=== PATIENT | male | born 1965 ===

== ENCOUNTER 2021-03-31 09:31 | Emergency (ER) | payer MEDICAID, SELFPAY ==
--- NOTE | ~2021-03-31 | XR_ITS ---
EXAMINATION: XR HAND, LEFT CLINICAL INFORMATION: Swelling and redness. COMPARISON: None TECHNIQUE: PA, lateral, and oblique views of the left hand. FINDINGS: There is mild dorsal hand soft tissue swelling. There is mild loss of joint space with periarticular spurring PIP joint joint first digit. Also visualized is mild loss of joint space PIP and DIP joints. No visible acute fracture, dislocation or subluxation seen. No bony erosive changes. XR/XR hand LT 2V IMPRESSION: Mild degenerative changes and DIP joints suggesting early degenerative changes. No visible acute fracture or dislocation seen.
[2021-03-31 10:20] VITALS: BP 121/82; PULSE 77; RESP 18; TEMP 37.3; O2SAT 96; BMI 35.9
[2021-03-31 11:00] VITALS: BP 140/82; PULSE 76; RESP 16; TEMP 37; O2SAT 98
[2021-03-31] MEDS: cephALEXin 500 MG CAPSULE PO (11:19)
--- NOTE | 2021-03-31 16:40 | ED.EXTPRO ---
HPI - Extremity Problem General Chief complaint: Extremity Problem Stated complaint: SWOLLEN HAND Time Seen by Provider: 03/31/21 10:49 History of Present Illness HPI Narrative: Patient shot IV cocaine 5 days ago in left dorsum of hand since then complaining of swelling of the dorsum of the hand which is getting worse now have a good feeling in the hands able to make fist no fever no chills no history of MRSA in the past Related Data Previous Rx's Medication Instructions Recorded cephalexin 500 mg PO QID 10 Days #40 cap 03/31/21 doxycycline hyclate 100 mg PO BID #20 cap 03/31/21 Allergies Allergy/AdvReac Type Severity Reaction Status Date / Time No Known Allergies Allergy Unverified 07/28/20 17:01 [No Known Allergies*] Review of Systems Review of Systems: Constitutional : No Weight loss, No Fever, No Chills ENT/Mouth : No sore throat, No Rhinorrhea Eyes: No Eye Pain, No Swelling Cardiovascular : No Chest Pain, no palpitations Respiratory : No Cough, No Sputum, no shortness of breath Gastrointestinal : no Nausea, No Vomiting, No Diarrhea, No abdominal Pain, no black stools Genitourinary : No Dysuria, No Urinary Frequency Musculoskeletal : No joint pain, No Myalgias, No Joint Swelling Skin : No Skin Lesions, No rash Neuro : No Weakness, No Numbness, No Dizziness, No Headache Psych : No Anxiety/Panic, No Depression Heme/Lymph: No Bruising, No Lymphadenopathy Endocrine : No Polyuria, No Polydipsia All other systems reviewed and are negative PMFSH Past Medical History Medical History Bipolar 1 disorder Depression HTN (hypertension) Sleep apnea Social History Social History Smoking Status: Current some day smoker Use of substances other than those prescribed or required for medical reasons: Yes Substance Use Type: Heroin Substance Use Frequency: Occasionally Last Used Substance: Days (ago) Advance Directives: Yes Advance Directives Information Provided: Yes Advance Directives on File: No Physical Exam Vital Signs: Vital Signs: Last Vital Signs Temp 98.6 F 03/31/21 11:00 Pulse 76 03/31/21 11:00 Resp 16 03/31/21 11:00 BP 140/82 H 03/31/21 11:00 Pulse Ox 98 03/31/21 11:00 Body Mass Index 35.9 Const: General: no acute distress and well developed HENMT: Head: Yes normocephalic and Yes atraumatic Resp: Effort & Inspection: normal respiratory effort Auscultation: clear to auscultation bilaterally Cardio: Palpation: normal PMI Rate: regular rate Rhythm: regular rhythm Heart sounds: S1 normal heart sound present and S2 normal heart sound present Extrem: Hand/finger images: 1. Swelling of the dorsum of the hand no crepitus patient can make a good fist Discharge Plan Discharge Clinical Impression: Cellulitis Qualifiers: Site of cellulitis: extremity Site of cellulitis of extremity: upper extremity Laterality: right Qualified Code(s): L03.113 - Cellulitis of right upper limb Patient Disposition: Home, Self-Care Instructions: Cellulitis (ED) Additional Instructions: Stop using IV drugs. Take antibiotic as prescribed Keep the left hand elevated. Report to the ER if worsening of the swelling/fever Prescriptions: New doxycycline hyclate 100 mg capsule 100 mg PO BID Qty: 20 RF: 0 cephalexin 500 mg capsule 500 mg PO QID 10 Days Qty: 40 RF: 0 Interventions: ED Discharge Assessment Last Done: 03/31/21 11:25 Discharge Date/Time: 03/31/21 11:25
== END 2021-03-31 11:25 | disposition home or self-care (01) ==
PROVIDERS: Emergency Provider Internal Medicine; PCP Pediatrics
DX: L03.113 Cellulitis of right upper limb (principal); M79.641 Pain in right hand; M79.89 Other specified soft tissue disorders; F11.90 Opioid use, unspecified, uncomplicated; F17.200 Nicotine dependence, unspecified, uncomplicated; Z71.6 Tobacco abuse counseling
CPT/HCPCS: 73120; 99284

== ENCOUNTER 2022-04-19 12:23 | Outpatient (REF) | payer MEDICAID, SELFPAY ==
--- NOTE | ~2022-04-19 | XR_ITS ---
EXAMINATION: XR KNEE, LEFT XR KNEE, RIGHT CLINICAL INFORMATION: Knee pain COMPARISON: None TECHNIQUE: 4 views of each knee, including AP upright view. FINDINGS: Left knee: No fracture or subluxation. Compartmental joint spaces are maintained. No joint effusion. Enthesophyte formation of the patella. The soft tissues are unremarkable. Right knee: No fracture or subluxation. Compartmental joint spaces are maintained. No joint effusion. The soft tissues are unremarkable. XR/XR knee LT 4V IMPRESSION: No suspicious finding of either knee. No significant arthritic changes.
--- NOTE | ~2022-04-19 | XR_ITS ---
EXAMINATION: XR KNEE, LEFT XR KNEE, RIGHT CLINICAL INFORMATION: Knee pain COMPARISON: None TECHNIQUE: 4 views of each knee, including AP upright view. FINDINGS: Left knee: No fracture or subluxation. Compartmental joint spaces are maintained. No joint effusion. Enthesophyte formation of the patella. The soft tissues are unremarkable. Right knee: No fracture or subluxation. Compartmental joint spaces are maintained. No joint effusion. The soft tissues are unremarkable. XR/XR knee RT 4V IMPRESSION: No suspicious finding of either knee. No significant arthritic changes.
== END 2022-04-19 12:24 | disposition home or self-care (01) ==
LOC: HO.XRAY 12:23
PROVIDERS: Absent Provider Pediatrics; PCP Pediatrics; Visit Provider Internal Medicine
DX: M25.561 Pain in right knee (principal); M25.562 Pain in left knee
CPT/HCPCS: 73564

== ENCOUNTER 2022-08-28 13:00 | Outpatient (RCR) | payer MEDICAID, SELFPAY | END 2022-10-08 11:36 | disposition home or self-care (01) | LOC: HO.PT 13:00 | PROVIDERS: PCP Pediatrics; Visit Provider Internal Medicine | DX: G51.0 Bell's palsy (principal) | CPT/HCPCS: 97014; 97161 ==

== ENCOUNTER 2023-08-13 11:34 | Outpatient (REF) | payer MEDICAID, SELFPAY ==
[2023-08-13 14:53] LABS: C Reactive Protein 0.57 mg/dL (< or = 0.50); Uric Acid 4.4 mg/dL (3.4-7.0)
[2023-08-13 15:18] LABS: Erythrocyte Sedimentation Rate 16 MM/HR (0-15); Prostate Specific Antigen 0.27 ng/mL (<0.05-4.0)
[2023-08-13 17:00] LABS: CT PCR NOT DETECTED (Not Detect.); NG PCR NOT DETECTED (Not Detect.)
[2023-08-14 09:37] LABS: ~HepC Num1 14.29 S/CO (0.00-0.79); ~Hepatitis C Antibody Reactive (Nonreactive)
[2023-08-17 15:44] LABS: HIV RNA PCR Qn Copies Not Detected Copies/mL; HIV RNA PCR Qn Log Copies Not Detected Log cps/mL
[2023-08-18 15:08] LABS: HCV Log PCR <1.18 NOT DETECTED Log IU/mL (NOT DETECTED); HepC Viral Load <15 NOT DETECTED IU/mL (NOT DETECTED)
== END 2023-08-13 11:35 | disposition home or self-care (01) ==
LOC: HO.CHCLDS 11:34
PROVIDERS: Visit Provider Pediatrics
DX: G89.29 Other chronic pain (principal); M25.562 Pain in left knee; R35.1 Nocturia; Z20.2 Contact with and (suspected) exposure to infections with a predominantly sexual mode of transmission
CPT/HCPCS: 0353U; 84153; 84550; 85652; 86140; 86803; 87522; 87536; 87900

== ENCOUNTER 2023-09-26 14:30 | Outpatient (REF) | payer MEDICAID, SELFPAY ==
[2023-09-26 17:22] LABS: MANUAL DIFF FLAG NO
[2023-09-26 17:27] LABS: Appearance Urine Clear; Color Urine Yellow; Glucose Urine UA Negative (Negative); Leukocyte Esterase Urine Negative (Negative); Nitrite Urine Negative (Negative); Specific Gravity - Urine 1.025 (1.005-1.025); Urine Blood Negative (Negative); Urine Ketones Negative (Negative); Urine Protein Negative (Neg-Trace)
[2023-09-26 17:27] LABS: Basophils Absolute Auto 0.1 X10*3/uL (0.0-0.2); Basophils Percent Auto 0.7 % (0-2); Eosinophils Absolute Auto 0.2 X10*3/uL (0.0-0.4); Eosinophils Percent Auto 3.2 % (0-4); Hematocrit 41.1 % (42.0-52.0); Hemoglobin 13.9 g/dl (14.0-18.0); Imm Gran Abs Auto 0.02 X10*3/uL (0.00-0.03); Imm Gran Pct Auto 0.3 % (0.0-0.4); Lymphocytes Absolute Auto 2.3 X10*3/uL (1.2-4.9); Lymphocytes Percent Auto 33.2 % (20-40); Mean Corpuscular HGB Conc 33.8 g/dl (31.0-36.0); Mean Corpuscular Hemoglobin 29.8 pg (27.0-33.0); Mean Platelet Volume 10.1 fL (9.4-12.4); Monocytes Absolute Auto 0.6 X10*3/uL (0.1-1.2); Monocytes Percent Auto 8.8 % (2-11); Neutrophils Absolute Auto 3.7 x10*3/uL (2.0-8.3); Neutrophils Percent Auto 53.8 % (45-73); Platelet Count 195 X10*3/uL (160-400); Red Blood Count 4.67 X10*6/uL (4.60-5.80); Red Cell Distribution Width 12.7 % (11.0-16.0); White Blood Count 6.8 X10*3/uL (4.8-10.8)
[2023-09-26 17:30] LABS: Bacteria Urine None Seen (None Seen); Hyaline Casts Urine 0-2 /LPF (0-2); Squamous Epithelial Cell Urine 0-2 /HPF (0-2); WBC Urine 0-5 /HPF (0-5)
[2023-09-26 17:33] LABS: Anion Gap 10 (12-20); Blood Urea Nitrogen 19 mg/dL (9-16); Calcium 9.2 mg/dL (8.4-10.2); Carbon Dioxide 28 mmol/L (22-29); Chloride 104 mmol/L (96-108); Estimated Glomerular Filt Rate > 60; Glucose Random 107 mg/dL (60-115); Potassium 4.2 mmol/L (3.3-5.1); Sodium 138 mmol/L (135-145)
[2023-09-26 17:40] LABS: Estimated Average Glucose 114 mg/dL; Hemoglobin A1c % 5.6 % (<6.0)
[2023-09-26 18:03] LABS: Vitamin B12 443 pg/mL (200-900)
== END 2023-09-26 14:31 | disposition home or self-care (01) ==
LOC: HO.CHCLDS 14:30
PROVIDERS: Visit Provider Pediatrics
DX: E78.2 Mixed hyperlipidemia (principal); R73.03 Prediabetes; R25.2 Cramp and spasm
CPT/HCPCS: 36415; 80048; 81001; 82607; 83036; 85025

== ENCOUNTER 2023-10-09 10:13 | Outpatient (REF) | payer MEDICAID, SELFPAY ==
--- NOTE | ~2023-10-09 | XR_ITS ---
EXAMINATION: XR HAND, RIGHT CLINICAL INFORMATION: Cramping and stiffness. COMPARISON: None available. TECHNIQUE: PA, lateral, and oblique views of the right hand. FINDINGS: Bony alignment and mineralization are normal. There is a neutral ulnar variance. An old well-corticated ununited radial styloid fracture versus accessory ossification center is seen. There is no acute fracture or dislocation. There is mild osteoarthritic change of the interphalangeal joint of the thumb. There is minimal osteoarthritic change of the first metacarpophalangeal joint. No fracture or dislocation is seen. There is no abnormal bone erosion. The proximal and distal carpal rows are intact. No focal soft tissue swelling, gas or foreign body is noted. XR/XR hand RT min 3V IMPRESSION: There is mild osteoarthritic change of the interphalangeal joint of thumb and of the first metacarpophalangeal joint. No fracture or dislocation is seen. There is no abnormal bone erosion. EXAMINATION: XR HAND, LEFT CLINICAL INFORMATION: Cramping and stiffness. COMPARISON: Radiographs dated 03/31/2021. TECHNIQUE: PA, lateral, and oblique views of the left hand. FINDINGS: Bony alignment and mineralization are normal. There is a neutral ulnar variance. There is mild osteoarthritic change of the interphalangeal joint of the thumb and of the first carpometacarpal joint. No fracture or dislocation is seen. No abnormal bone erosion. The proximal and distal carpal rows are intact. No focal soft tissue swelling, gas or foreign body is seen. IMPRESSION: There is mild osteoarthritic change of the interphalangeal joint of the thumb and of the left first carpometacarpal joint. No fracture dislocation is seen. There is no abnormal bone erosion.
--- NOTE | ~2023-10-09 | XR_ITS ---
EXAMINATION: XR HAND, RIGHT CLINICAL INFORMATION: Cramping and stiffness. COMPARISON: None available. TECHNIQUE: PA, lateral, and oblique views of the right hand. FINDINGS: Bony alignment and mineralization are normal. There is a neutral ulnar variance. An old well-corticated ununited radial styloid fracture versus accessory ossification center is seen. There is no acute fracture or dislocation. There is mild osteoarthritic change of the interphalangeal joint of the thumb. There is minimal osteoarthritic change of the first metacarpophalangeal joint. No fracture or dislocation is seen. There is no abnormal bone erosion. The proximal and distal carpal rows are intact. No focal soft tissue swelling, gas or foreign body is noted. XR/XR hand LT min 3V IMPRESSION: There is mild osteoarthritic change of the interphalangeal joint of thumb and of the first metacarpophalangeal joint. No fracture or dislocation is seen. There is no abnormal bone erosion. EXAMINATION: XR HAND, LEFT CLINICAL INFORMATION: Cramping and stiffness. COMPARISON: Radiographs dated 03/31/2021. TECHNIQUE: PA, lateral, and oblique views of the left hand. FINDINGS: Bony alignment and mineralization are normal. There is a neutral ulnar variance. There is mild osteoarthritic change of the interphalangeal joint of the thumb and of the first carpometacarpal joint. No fracture or dislocation is seen. No abnormal bone erosion. The proximal and distal carpal rows are intact. No focal soft tissue swelling, gas or foreign body is seen. IMPRESSION: There is mild osteoarthritic change of the interphalangeal joint of the thumb and of the left first carpometacarpal joint. No fracture dislocation is seen. There is no abnormal bone erosion.
== END 2023-10-09 10:14 | disposition home or self-care (01) ==
LOC: HO.HHCX 10:13
PROVIDERS: Visit Provider Pediatrics
DX: M79.642 Pain in left hand (principal); M79.641 Pain in right hand; R25.2 Cramp and spasm; E78.2 Mixed hyperlipidemia; R73.03 Prediabetes
CPT/HCPCS: 73130

== ENCOUNTER 2024-01-24 09:52 | Outpatient (REF) | payer MEDICAID, SELFPAY ==
[2024-01-24 14:56] LABS: Potassium 3.3 mmol/L (3.3-5.1)
== END 2024-01-24 09:53 | disposition home or self-care (01) ==
LOC: HO.CHCLDS 09:52
PROVIDERS: Visit Provider Internal Medicine
DX: E87.6 Hypokalemia (principal)
CPT/HCPCS: 36415; 84132

== ENCOUNTER 2024-04-03 10:35 | Outpatient (REF) | payer MEDICAID, SELFPAY ==
[2024-04-03 14:50] LABS: Alanine Aminotransferase 17 U/L (0-40); Albumin Level 4.1 g/dL (3.5-5.0); Alkaline Phosphatase 100 U/L (39-117); Anion Gap 12 (12-20); Aspartate Amino Transferase 24 U/L (5-37); Bilirubin Total 0.3 mg/dL (0.0-1.0); Blood Urea Nitrogen 12 mg/dL (9-16); Calcium 9.5 mg/dL (8.4-10.2); Carbon Dioxide 27 mmol/L (22-29); Chloride 106 mmol/L (96-108); Cholesterol 152 mg/dL (<200); Estimated Glomerular Filt Rate > 60; Glucose Random 93 mg/dL (60-115); HDL Cholesterol 38 mg/dL (>40); LDL Cholesterol Calculated 93 mg/dL (<100); Potassium 4.6 mmol/L (3.3-5.1); Sodium 140 mmol/L (135-145); Total Protein 7.6 g/dL (6.5-8.0); Triglycerides 109 mg/dL (<150)
== END 2024-04-03 10:36 | disposition home or self-care (01) ==
LOC: HO.CHCLDS 10:35
PROVIDERS: Visit Provider Pediatrics
DX: I10 Essential (primary) hypertension (principal); E78.2 Mixed hyperlipidemia
CPT/HCPCS: 36415; 80053; 80061

== ENCOUNTER 2024-05-29 10:14 | Outpatient (AMB) | payer MEDICAID, SELFPAY ==
--- NOTE | 2024-05-29 07:50 | A.OFFVIS_ITS ---
Intake Visit Reasons: LDCT SD Allergies No Known Allergies [No Known Allergies*] Allergy (Unverified 07/28/20 17:01) HPI HPI LDCT SD: Details: Initial visit for this 58yo smoker with a 40PYH. Patient has been smoking since age 6 for 52 years at 1ppd. He is working to quit. PCP gave him patches. No cigarette since 05/23/24. . Denies marijuana use. Denies second hand smoke exposure. Denies exposure to chemicals or substances like asbestos. . Denies known family history of lung cancer. Denies personal history of cancers. Denies chest CT in last year. . Denies recent travel outside the [place]. Denies recent respiratory illness or recent hospitalization for respiratory issues. Denies testing positive for COVID. Admits receiving COVID Vaccine. x4. . Denies fever, chills, new/worsening cough, hemoptysis, hoarseness or dysphagia. Denies significant chest pain, significant dyspnea or unintentional weight loss. Patient Lung Cancer Screening Questionnaire reviewed with patient by provider. . Shared Decision Making Completed. Patient meets criteria. Discussed in detail with patient, the risk vs benefit of LDCT screening. Patient consents to proceed with scan. Discussed smoking cessation. PFSH Medical History (Updated 05/29/24 @ 10:29 by Yoana Mcdermott PA-C) HTN (hypertension) Sleep apnea Nicotine dependence, cigarettes, uncomplicated Bipolar 1 disorder Depression Surgical History (Updated 05/26/24 @ 12:14 by Yoana Mcdermott PA-C) History of colonoscopy History of umbilical hernia repair Family History (Updated 05/29/24 @ 10:28 by Yoana Mcdermott PA-C) Son Lymphoma Social History (Updated 05/29/24 @ 10:27 by Yoana Mcdermott PA-C) Years Smoked: (onset 6yo, 1ppd x 52yrs, 40pyh - quit 05/23/24) Substance Use Type: Heroin Assessment & Plan Assessment & Plan (1) Nicotine dependence, cigarettes, uncomplicated: Comment: (current smoker - onset 6yo, 1ppd x 52yrs, 40+PYH - trying to quit 05/23/24) Code(s): F17.210 - Nicotine dependence, cigarettes, uncomplicated Category: Medical Plan: - SDM visit completed today in office. - Patient meets criteria for LDCT for lung cancer screening purposes and is asymptomatic. - Smoking cessation counseling offered. Patients can always call [phone]. - Will arrange for a LDCT scan of the chest for screening purposes at [facility]. - Risks, benefits, and alternatives were discussed in detail and the patient agrees to proceed. - Risks discussed include but are not limited to: radiation exposure, anxiety during testing and while awaiting results, false negatives, false positives and possibility of additional intervention such as further imaging or surgical procedures for benign disease. - Benefits are obviously detection of lung cancer at an early stage which can lead to improved outcomes. - Discussed the importance of screening program compliance with adherence to yearly LDCT scan as scheduled - or sooner interval scans for personalized screening regimen. - Discussed follow up plan. Our office will send a letter discussing results and if needed set up phone call and office visit based on CT findings. - Patient educated on results categorization and the management decisions for suspicious findings potentially found on the screening LDCT scan. Any patient with a Lung RADS score of 3 or 4 will be reviewed by a multidisciplinary team at [facility] to form a plan of action in regards to scan findings. - If further work up is warranted for a suspicious lung finding this will be followed by the Lung Cancer Screening program in conjunction with the Thoracic Surgery Department at [facility]. - A copy of the office note and LDCT will be sent to the patient's PCP - as well as documentation on any associated further plans of care. - Incidental findings on LDCT are the PCP's responsibility. These findings are indicated with an S finding on the LDCT Assessment. A note discussing the findings will be sent to the PCP who is then responsible for further management. - All questions answered.? Coding Level of Care Code Lung Cancer Screening [id number] Diagnoses Nicotine dependence, cigarettes, uncomplicated F17.210
== END 2024-05-29 10:40 | disposition home or self-care (01) ==
PROVIDERS: PCP Pediatrics; Referring Provider Pediatrics; Visit Provider Physician Assistant Medical
DX: F17.210 Nicotine dependence, cigarettes, uncomplicated (principal)
CPT/HCPCS: G0296

== ENCOUNTER 2024-05-29 10:28 | Outpatient (REF) | payer MEDICAID, SELFPAY ==
--- NOTE | ~2024-05-29 | CT_ITS ---
EXAMINATION: CT LOW-DOSE SCREENING CHEST WITHOUT CONTRAST CLINICAL INFORMATION: Negative dependence, cigarettes, uncomplicated. Current smoker, 52 pack year history, 280 pounds. COMPARISON: No prior. TECHNIQUE: Multidetector volumetric CT imaging of the chest is performed on a Siemens SOMATOM Definition scanner without contrast using low dose technique. Additional 2D coronal and sagittal reformatted images and axial 3D maximum intensity projection (MIP) images are generated on the CT workstation. This CT examination was performed using dose optimization techniques as appropriate, variously including the following: *Automated exposure control *Adjustment of mA and/or kV according to patient size (this includes techniques or standardized protocols for targeted exams where dose is matched to indication/reason for exam; i.e. extremities or head) *Use of iterative reconstruction technique TOTAL EXAM DLP: 80 mGy-cm. Please note, due to [facility] [employer] contractual, systems, and staffing issues, an [facility] radiologist was not available for review and dictation of this case until 07/10/2024. FINDINGS: PULMONARY NODULES: -Mild respiratory motion present limiting detection of subtle findings. -There are a few tiny 2-3 mm scattered calcified granulomata in both lungs, benign. -4 mm nodule in the lateral inferior right middle lobe, (series 5, image 207). LUNGS: -Lungs are clear bilaterally. -No pleural effusion or pleural thickening. -Minimal small airway thickening is present, suggesting mild chronic bronchitis. -Central airways are patent as is the trachea. Small amount of secretions present in the proximal left mainstem bronchus. MEDIASTINUM: -Aorta is mildly uncoiled and mildly calcified but normal in caliber. -Main pulmonary artery is prominent, however measures superior limits of normal at 3.6 cm. -No suspicious lymphadenopathy. -Heart size is normal. No pericardial effusion. -Esophagus is normal in appearance. CORONARY ARTERY CALCIFICATION: There are moderate three-vessel coronary calcifications. THYROID GLAND: Multinodular goiter present which extends substernally, with large calcifications in both lobes. Discrete nodule size cannot be determined due to motion. CHEST WALL/AXILLA: Severe right and mild left gynecomastia. No masses or adenopathy. UPPER ABDOMEN: -No discrete abnormality within confines of low-dose technique. OSSEOUS STRUCTURES: No suspicious lytic or blastic bone lesions. Mild spinal degenerative changes. CT/CT lung screening IMPRESSION: 1. Mild respiratory motion limitations. A few scattered pulmonary nodules measuring up to 4 mm in the right middle lobe laterally. Less than 1% chance of malignancy. 2. Lungs otherwise clear without active disease. 3. Mild thickening of the small airways may suggest mild chronic bronchitis. 4. Severe right and mild left minimal gynecomastia. 5. Additional ancillary findings as discussed in the body of report. ASSESSMENT: 1. Lung-RADS Category 2: Benign appearance or behavior of nodules. Mild respiratory motion limitation. 2. Lung-RADS Category S: None. RECOMMENDATION: Continued routine annual low-dose CT lung screening in 1 year is recommended. An order for CT CHEST LOW DOSE CANCER SCREENING ([id number]) can be placed. Electronically signed by: Jose Alejandro Peterson MD 07/10/2024 09:58 AM EDT
== END 2024-05-29 10:29 | disposition home or self-care (01) ==
LOC: HO.CT 10:28
PROVIDERS: Visit Provider Physician Assistant Medical
DX: Z12.2 Encounter for screening for malignant neoplasm of respiratory organs (principal); F17.210 Nicotine dependence, cigarettes, uncomplicated
CPT/HCPCS: 71271; G0296

== ENCOUNTER → 2024-05-29 10:30 | Outpatient (BNV) | payer MEDICAID, SELFPAY | PROVIDERS: Visit Provider Radiology Diagnostic Radiology | DX: Z12.2 Encounter for screening for malignant neoplasm of respiratory organs (principal); F17.210 Nicotine dependence, cigarettes, uncomplicated | CPT/HCPCS: 71271 ==

== ENCOUNTER 2024-06-05 12:39 | Outpatient (REF) | payer MEDICAID, SELFPAY ==
[2024-06-05 16:03] LABS: HIV AB/AG Nonreactive (Nonreactive); HIV Num 1 0.05 S/CO (0.00-0.99); Syphilis Screen Nonreactive (Nonreactive)
[2024-06-05 19:43] LABS: CT PCR NOT DETECTED (Not Detect.); NG PCR NOT DETECTED (Not Detect.)
== END 2024-06-05 12:40 | disposition home or self-care (01) ==
LOC: HO.CHCLDS 12:39
PROVIDERS: Visit Provider Pediatrics
DX: Z11.3 Encounter for screening for infections with a predominantly sexual mode of transmission (principal)
CPT/HCPCS: 36415; 86780; 87389; 87491; 87591

== ENCOUNTER 2024-09-30 11:25 | Outpatient (REF) | payer MEDICAID, SELFPAY ==
[2024-09-30 14:26] LABS: Anion Gap 13 (12-20); Blood Urea Nitrogen 16 mg/dL (9-16); Calcium 9.7 mg/dL (8.4-10.2); Carbon Dioxide 26 mmol/L (22-29); Chloride 106 mmol/L (96-108); Estimated Glomerular Filt Rate > 60; Glucose Random 101 mg/dL (60-115); Potassium 4.5 mmol/L (3.3-5.1); Sodium 140 mmol/L (135-145)
[2024-09-30 14:49] LABS: PSA,Total (Free>4and<10) 0.28 ng/mL (0.00-4.00)
== END 2024-09-30 11:26 | disposition home or self-care (01) ==
LOC: HO.CHCLDS 11:25
PROVIDERS: Visit Provider Internal Medicine
DX: R39.11 Hesitancy of micturition (principal)
CPT/HCPCS: 36415; 80048; 84153; 87086

== ENCOUNTER 2025-06-23 10:44 | Outpatient (REF) | payer MEDICAID, SELFPAY ==
--- OUTSIDE RECORDS SUMMARY | 2025-06-23 11:36 | XMS_ITS | Encounter Summary ---
Author Organization [facility] Address [address] [place] [address] Care Team Providers Care Ribbon Lap Machine Tender Name Role Phone Tanja Patricia MD Primary Care Provider [phone] Barron Jernigan Unavailable Unavailable Encounter Details Date Type Department Care Team (Late st Contact Info) Description 03/09/2024 Orders Only [facility] [address] [place], [place] [id number] ProviderGenesis MD Social History Tobacco Use Types Packs/Day Years Used Date Smoking Tobacco: Former Cigarettes Passive Smoke Exposure: Past Smokeless Tobacco: Never Depression Answer Date Recorded Patient Health Questionnaire-9 Score 5 12/05/2023 Patient Health Questionnaire-9 Score 5 12/05/2023 Last PHQ-9: Questionnaire Data Not on file 0 12/05/2023 Housing Stability Answer Date Recorded What is your housing situation today? I have jayna grossman 08/26/[address] you li ve. Do you have problems with any of the following? None of the above 08/26/2023 Food Insecurity Answer Date Recorded Within the past 12 months, y ou worried that your food would run out before you got money to buy more: Never True 08/26/2023 Within the past 12 months,th e food you bought just didn't last and you didn't have enough money to get more: Never True Transportation Answer Date Recorded In the past 12 months, has l ack of transportation kept you from medical appts, meetings, work or from getting things needed for daily living? No 08/26/2023 Utilities Answer Date Recorded In the past 12 months, has t he electric, gas, oil or water company threatened to shut off services in your home? No 08/26/2023 Depression Answer Date Recorded Patient Health Questionnaire-2 Score 2 12/05/2023 Sex and Gender Information Value Date Recorded Sex Assigned at Male 09/10/2022 10:18 AM EDT Legal Sex Male 10:18 AM EDT Gender Identity Male 09/10/2022 10:18 AM EDT Sexual Orientation Straight 09/10/2022 10 :18 AM EDT documented as of this encounter Plan of Treatment Not on file documented as of this encounter Procedures Procedure Name Priority Date/Time Associated Diagnosis Comments XR CERVICAL SPINE 4V Routine 03/09/2024 2:43 PM EDT documented in this encounter Results * XR CERVICAL SPINE 4V (03/09/2024 2:43 PM EDT) Anatomical Region Laterality Modality Abdomen Radiographic Annabel ging us Historical Provider MD WHITE XR PROCEDURES Final R esult documented in this encounter Visit Diagnoses Not on filedocumented in this encounter Additional Health Concerns Assessment Noted Time PHQ-9 Depression Total Score: 5 12/05/19 24 10:18 AM EST documented as of this encounter Care Teams Ribbon Lap Machine Tender Relationship Specialty Start Date End Date Tanja Patricia MD [address] [place] [address] PCP - General Family Medicine 11/11/18 Barron Jernigan FNP [address] [place] [address] Nurse Practitioner Family Medicine 10/07/23 documented as of this encounter
--- OUTSIDE RECORDS SUMMARY | 2025-06-23 11:36 | XMS_ITS | Clinical Summary ---
Author Organization [facility] Address [address] [place] [phone] Phone Care Team Providers Care Police Booking Officer Name Role Phone Physician, No Pcp Primary Care Provider Unavaila ble Allergies No known active allergies Medications oxyCODONE (OXY-IR) 5 mg immediate release capsule Take 1 capsule (5 mg total) by mouth every 6 (six) hours if needed for severe pain. Max Daily Amount: 20 mg 15 capsule 10/02/2024 Active Active Problems No known active problems Medical History Medical History Date Comments Hypertension Social History Tobacco Use Types Packs/Day Years Used Date Smoking Tobacco: Every Day Cigarettes Smokeless Tobacco: Never Tobacco Cessation:Ready to Q uit: Not Asked; Counseling Given: Not Answered Sex and Gender Information Value Date Recorded Sex Assigned at Male 10/02/2024 7:48 AM EST Legal Sex Male 2:34 PM EST Gender Identity Male 10/02/2024 7:48 AM EST Sexual Orientation Straight 10/02/2024 7: 48 AM EST Obstetrics History Last Filed Vital Signs Vital Sign Reading Time Taken Comments Blood Pressure 139/91 02/14/2025 10:08 AM EDT Pulse 88 02/14/2025 10:08 AM EDT Temperature 37.4 C (99.3 F) 02/14/2025 10:08 AM EDT Respiratory Rate 20 02/14/2025 10:08 AM EDT Oxygen Saturation 95% 02/14/2025 10:08 AM EDT Inhaled Oxygen Concentration - - Weight 145 kg (320 lb) 02/14/2025 10:08 AM EDT Height 188 cm (6' 2 ) 02/14/2025 10:08 AM EDT Body Mass Index 41.09 02/14/2025 10:08 AM EDT Plan of Treatment Health Maintenance Due Date Last Done Comments Pneumococcal Vaccine: 50+ Years (2 of 2 - PCV) 03/11/2009 03/11/2008 Colorectal Cancer Screening: Colonoscopy 10/10/2022 Hepatitis C Screening 10/10/2022 Social Influencers of Health Screening 10/10/2022 DTaP,Tdap,and Td Vaccines (2 - Td or Tdap) 05/20/2024 05/20/2014 COVID-19 Vaccine (5 - season) 2024 09/04/2023, 12/04/2021, 01/31/2021, Additional history exists Depression Screening 11/11/2024 RSV Immunization Adult Patients (1 - Risk 60-74 years 1-dose series) 2024 Zoster Vaccines (2 of 2) 02/10/2025 12/16/2024 Influenza Vaccine (#1) 2025 , 08/13/2023, 09/14/2021, Additional history exists Hypertension/CHF/CAD Annual BMP Blood Test 02/14/2026 02/14/2025, 10/02/2024, 10/02/2024, Additional history exists Cholesterol Screening (Lipid Panel) 04/03/2029 04/03/2024 Hepatitis A Vaccines Completed 08/28/2011, 02/07/20 11 HIV Screening Completed 06/05/2024 HIB Vaccines Aged Out No longer eligi ble based on patient's age to complete this topic HPV Vaccines Aged Out No longer eligi ble based on patient's age to complete this topic Hepatitis B Vaccines Aged Out No long er eligible based on patient's age to complete this topic IPV Vaccines Aged Out No longer eligi ble based on patient's age to complete this topic MMR Vaccines Aged Out No longer eligi ble based on patient's age to complete this topic Meningococcal ACWY Vaccine Aged Out N o longer eligible based on patient's age to complete this topic Meningococcal B Vaccine Aged Out No l onger eligible based on patient's age to complete this topic RSV Immunization Patients Under 20 months Aged Out No longer eligible based on patient's age to complete this topic Varicella Vaccines Aged Out No longer eligible based on patient's age to complete this topic Procedures Procedure Name Priority Date/Time Associated Diagnosis Comments COMPREHENSIVE METABOLIC PANEL STAT 02/14/2025 10:33 AM EDT from Last 3 Months or Most Recently Relevant to Health Maintenance Results * (ABNORMAL) Comprehensive metabolic panel (02/14/2025 10:33 AM EDT) Sodium 137 133 - 145 mmol/L LAB CHEMISTRY METHOD 02/14/2025 11:08 AM [facility] Potassium 3.3(L) 3.5 - 5.5 mmol/L LAB CHEMISTRY METHOD 02/14/2025 11:08 AM [facility] Chloride 101 96 - 110 mmol/L LAB CHEMISTRY METHOD 02/14/2025 11:08 AM [facility] CO2 29 21 - 32 mmol/L LAB CHEMISTRY METHOD 02/14/2025 11:08 AM [facility] Anion Gap 7 3 - 11 LAB CHEMISTRY METHOD 02/14/2025 11:08 AM [facility] Glucose 120(H) 70 - 100 mg/dL LAB CHEMISTRY METHOD 02/14/2025 11:08 AM [facility] BUN 12 5 - 25 mg/dL LAB CHEMISTRY METHOD 02/14/2025 11:08 AM [facility] Creatinine 0.80 0.70 - 1.30 mg/dL LAB CHEMISTRY METHOD 02/14/2025 11:08 AM [facility] eGFR 101 >=60 mL/min/1. 73m2 LAB CHEMISTRY METHOD 02/14/2025 11:08 AM [facility] Comment:Calculation based on the Chronic Kidney Disease Epidemiology Collaboration (CKD-EPI) equation refit without adjustment for race. BUN/Creatinine Ratio 15.0 LAB CHEMISTRY METHOD 02/14/2025 11:08 AM [facility] Calcium 9.4 8.5 - 10.5 mg/dL LAB CHEMISTRY METHOD 02/14/2025 11:08 AM [facility] AST (SGOT) 23 10 - 42 unit/L LAB CHEMISTRY METHOD 02/14/2025 11:08 AM T [facility] ALT (SGPT) 24 10 - 60 unit/L LAB CHEMISTRY METHOD 02/14/2025 11:08 AM [facility] Alkaline Phosphatase 115 42 - 121 unit/L LAB CHEMISTRY METHOD 02/14/2025 11:08 AM [facility] Total Protein 7.2 6.0 - 8.0 g/dL LAB CHEMISTRY METHOD 02/14/2025 11:08 AM T [facility] Albumin 3.6 3.2 - 5.0 g/dL LAB CHEMISTRY METHOD 02/14/2025 11:08 AM [facility] Total Bilirubin 0.4 0.0 - 1.4 mg/dL LAB CHEMISTRY METHOD 02/14/2025 11:08 AM [facility] Blood Venous blood specimen / Unknown Venipuncture / Unknown 02/14/2025 10:33 AM EDT 02/14/2025 10:38 AM EDT Jonathan Marvin MD LAB BLOOD ORDERABLES Final Resu lt [facility] [address] [place] [address], from Last 3 Months or Most Recently Relevant to Health Maintenance Insurance MEDICAID - [place] Advance Directives Documents on File Type Date Recorded Patient Egg Buyer Expl anation Health Care Decision (hx) 02/26/2016 AD DORSEY DIRECTIVE Health Care Decision (hx) 02/26/2016 AD DORSEY DIRECTIVE Health Care Decision (hx) 02/26/2016 AD DORSEY DIRECTIVE Health Care Decision (hx) 02/26/2016 AD DORSEY DIRECTIVE Health Care Decision (hx) 02/26/2016 AD DORSEY DIRECTIVE Health Care Decision (hx) 02/26/2016 AD DORSEY DIRECTIVE Health Care Decision (hx) 02/26/2016 AD DORSEY DIRECTIVE Health Care Decision (hx) 02/26/2016 AD DORSEY DIRECTIVE Health Care Decision (hx) 02/26/2016 AD DORSEY DIRECTIVE Health Care Decision (hx) 02/26/2016 AD DORSEY DIRECTIVE Health Care Decision (hx) 02/26/2016 AD DORSEY DIRECTIVE Health Care Decision (hx) 02/19/2016 AD DORSEY DIRECTIVE Health Care Decision (hx) 02/19/2016 AD DORSEY DIRECTIVE Health Care Decision (hx) 02/19/2016 AD DORSEY DIRECTIVE Health Care Decision (hx) 02/19/2016 AD DORSEY DIRECTIVE Health Care Decision (hx) 02/19/2016 AD DORSEY DIRECTIVE Health Care Decision (hx) 02/19/2016 AD DORSEY DIRECTIVE Health Care Decision (hx) 02/19/2016 AD DORSEY DIRECTIVE Health Care Decision (hx) 02/19/2016 AD DORSEY DIRECTIVE Health Care Decision (hx) 02/19/2016 AD DORSEY DIRECTIVE Health Care Decision (hx) 02/19/2016 AD DORSEY DIRECTIVE Health Care Decision (hx) 02/19/2016 AD DORSEY DIRECTIVE Care Teams Police Booking Officer Relationship Specialty Start Date End Date Physician, No Pcp PCP - General 10/02/24
[2025-06-23 14:33] LABS: Hemoglobin A1C 144.5996 umol/L; Total Hemoglobin (HGBA1C) 3635.4487 umol/L
[2025-06-23 14:42] LABS: Alanine Aminotransferase 22 U/L (0-40); Albumin Level 4.4 g/dL (3.5-5.0); Alkaline Phosphatase 84 U/L (39-117); Anion Gap 11 (12-20); Aspartate Amino Transferase 30 U/L (5-37); Blood Urea Nitrogen 14 mg/dL (9-16); Calcium 9.1 mg/dL (8.4-10.2); Carbon Dioxide 28 mmol/L (22-29); Chloride 104 mmol/L (96-108); Estimated Glomerular Filt Rate > 60; Potassium 4.2 mmol/L (3.3-5.1); Sodium 139 mmol/L (135-145); Total Protein 7.4 g/dL (6.5-8.0)
[2025-06-23 15:15] LABS: Folate 9.5 ng/mL (> or = 4.0); Vitamin B12 484 pg/mL (200-900)
== END 2025-06-23 10:45 | disposition home or self-care (01) ==
LOC: HO.CHCLDS 10:44
PROVIDERS: Visit Provider Pediatrics
DX: I10 Essential (primary) hypertension (principal); G47.33 Obstructive sleep apnea (adult) (pediatric); E87.6 Hypokalemia; Z71.3 Dietary counseling and surveillance; Z71.82 Exercise counseling
CPT/HCPCS: 36415; 80048; 80076; 82607; 82746; 83036; 84153; 84443

== ENCOUNTER 2025-08-05 11:13 | Outpatient (REF) | payer MEDICAID, SELFPAY ==
--- NOTE | ~2025-08-05 | XR_ITS ---
EXAMINATION: XR KNEE, LEFT CLINICAL INFORMATION: PAIN COMPARISON: None available. TECHNIQUE: Four views of the left knee. FINDINGS: There is a joint effusion. There is mild narrowing of medial joint space. Intercondylar tubercles are minimally peaked. Minimal atherosclerotic calcification is present in the distal femoral artery. There is lateral patellar tilt. XR/XR knee LT 4V IMPRESSION: Mild nonspecific medial joint space narrowing. No joint effusion. Lateral patellar tilt can be associated with patella femoral maltracking resulting in chronic activity related anterior knee pain. Electronically signed by: Erick Navarro MD 08/05/2025 12:44 PM EDT
--- OUTSIDE RECORDS SUMMARY | 2025-08-05 10:40 | XMS_ITS | Encounter Summary ---
Author Organization [facility] Address [address] [facility] 7[address] [place] [address] Care Team Providers Care Airplane Pilot Photogrammetry Name Role Phone Tanja Patricia MD Primary Care Provider Barron Jernigan Unavailable Unavailable Jonny Jaime RN Unavailable [phone] Ernseto Carroll Unavailable Reason for Referral * Consultation (Routine) - Pending Review Specialty Diagnoses / Procedures Referred By Cecelia t Referred To Contact Physical Therapy Diagnoses Left leg pain Spencer Melton MD [address] [place] [address] Phone: tel: fax: Referral ID Status Reason Start Date Expiration Date Visits Requested Visits Authorized [id number] Pending Review Specialty Services Required 08/05/2025 08/05/2026 1 1 * Consultation (Routine) - Pending Review Specialty Diagnoses / Procedures Referred By Cecelia t Referred To Contact Urology Diagnoses Microscopic hematuria Spencer Melton MD [address] [place] [address] Phone: tel: fax: Referral ID Status Reason Start Date Expiration Date Visits Requested Visits Authorized [id number] Pending Review Specialty Services Required 08/05/2025 08/05/2026 1 1 Reason for Visit * Reason Comments Leg Pain Encounter Details Date Type Department Care Team ([facility] st Contact Info) Description 08/05/2025 10:40 AM EDT Office Visit [facility] [address] [place] [address] Hypokalemia (Primary Dx); Left leg pain; Microscopic hematuria Social History Tobacco Use Types Packs/Day Years Used Date Smoking Tobacco: Former Cigarettes Passive Smoke Exposure: Past Smokeless Tobacco: Never Tobacco Cessation:Counseling Given: Not Answered Depression Answer Date Recorded Patient Health Questionnaire-9 Score 17 06/23/2025 Patient Health Questionnaire-9 Score 17 06/23/2025 Last PHQ-9: Questionnaire Data Not on file 0 06/23/2025 Housing Stability Answer Date Recorded What is your housing situation today? I have jayna chauncey 08/26/[address] you li [...] Date Recorded Patient Health Questionnaire-2 Score 2 06/23/2025 Sex and Gender Information Value Date Recorded Sex Assigned at Male 09/10/2022 10:18 AM EDT Legal Sex Male 10:18 AM EDT Gender Identity Male 09/10/2022 10:18 AM EDT Sexual Orientation Straight 09/10/2022 10 :18 AM EDT documented as of this encounter Last Filed Vital Signs Vital Sign Reading Time Taken Comments Blood Pressure 134/87 08/05/2025 10:38 AM EDT Pulse 86 08/05/2025 10:38 AM EDT Temperature 36.7 C (98.1 F) 08/05/2025 10:38 AM EDT Respiratory Rate 18 08/05/2025 10:38 AM EDT Oxygen Saturation 97% 08/05/2025 10:38 AM EDT Inhaled Oxygen Concentration - - Weight 132 kg (290 lb) 08/05/2025 10:38 AM EDT Height - - Body Mass Index 37.23 11/10/2024 9:33 AM EST documented in this encounter Plan of Treatment Scheduled Referrals Name Type Priority Associated Diagnoses Orde r Schedule Referral to Urology Outpatient Referral Routine Microscopic hematuria Expected: 08/05/2025 (Approximate), Expires: 08/05/2026 Referral to Physical Therapy Outpatient Referral Routine Left leg pain Expected: 08/05/2025 (Approximate), Expires: 08/05/2026 documented as of this encounter Procedures Procedure Name Priority Date/Time Associated Diagnosis Comments XR KNEE 4+ VIEWS LEFT Routine 08/05/2025 12:18 PM EDT Left leg pain POTASSIUM Routine 08/05/2025 11:39 AM EDT Hypokalemia documented in this encounter Results * XR Knee 4+ Views Left (08/05/2025 12:18 PM EDT) Anatomical Region Laterality Modality Lower Extremities, Knee Left [facility] 08/05/2025 12:1 8 PM EDT Narrative 08/05/2025 12:47 [place] [address] XRay Report Signed Patient: Pee Johnson MR#: [id number] 5 : 1965 Acct:[id number] Age/Sex: 59 / M ADM Date: 08/05/25 Loc: [facility]X Attending Dr: Spencer Melton MD Ordering Physician: Spencer Melton MD Date of Service: 08/05/25 Procedure(s): XR knee LT 4V Accession Number(s): [id number] cc: Tanja Patricia MD; Spencer Melton MD Reason for Exam: PAIN EXAMINATION: XR KNEE, LEFT CLINICAL INFORMATION: PAIN COMPARISON: None available. TECHNIQUE: Four views of the left knee. FINDINGS: There is a joint effusion. There is mild narrowing of medial joint space. Intercondylar tubercles are minimally peaked. Minimal atherosclerotic calcification is present in the distal femoral artery. There is lateral patellar tilt. XR/XR knee LT 4V IMPRESSION: Mild nonspecific medial joint space narrowing. No joint effusion. Lateral patellar tilt can be associated with patella femoral maltracking resulting in chronic activity related anterior knee pain. Electronically signed by: Erick Navarro MD 08/05/2025 12:44 PM EDT RP Dictated By: Erick Navarro MD Signed By: <Electronically signed by Erick Navarro MD in OV> 08/05/25 1244 DD/ 1218 TD/TT: 08/05/25 1220 Cane Furniture Maker: Procedure Note Donotuseinterpreter, Image - 08/05/2025 [place] [address] XRay Report Signed Patient: Pee Johnson AMR#: [id number] 5 : 1965Acct:[id number] Age/Sex: 59 / MADM Date: 08/05/25 [facility]: Spencer Melton MD Ordering Physician: Spencer Melton MD Date of Service: 08/05/25 Procedure(s): XR knee LT 4V Accession Number(s): [id number] cc: Tanja Patricia MD; Spencer Melton MD Reason for Exam: PAIN EXAMINATION: XR KNEE, LEFT CLINICAL INFORMATION: PAIN COMPARISON: None available. TECHNIQUE: Four views of the left knee. FINDINGS: There is a joint effusion. There is mild narrowing of medial joint space. Intercondylar tubercles are minimally peaked. Minimal atherosclerotic calcification is present in the distal femoral artery. There is lateral patellar tilt. XR/XR knee LT 4V IMPRESSION: Mild nonspecific medial joint space narrowing. No joint effusion. Lateral patellar tilt can be associated with patella femoral maltracking resulting in chronic activity related anterior knee pain. Electronically signed by: Erick Navarro MD 08/05/2025 12:44 PM EDT RP Dictated By: Erick Navarro MD Signed By: <Electronically signed by Erick Navarro MD in OV> 08/05/25 1244 DD/ 1218 TD/TT: 08/05/25 1220 Cane Furniture Maker: Spencer Melton MD IMG XR PROCEDURES Final Result * Potassium (08/05/2025 11:39 AM EDT) Potassium 3.6 3.3 - 5.1 mmol/L [facility] Blood Venous blood specimen / Unknown 08/05/2025 11:39 AM EDT 08/05/2025 1:06 PM EDT Spencer Melton MD LAB BLOOD ORDERABLES Final Resul t [facility] [address] [place] [address] [phone] documented in this encounter Visit Diagnoses Diagnosis Hypokalemia- Primary Hypopotassemia Left leg pain Pain in soft tissues of limb Microscopic hematuria documented in this encounter Additional Health Concerns Assessment Noted Time PHQ-9 Depression Total Score: 17 025 10:22 AM EDT documented as of this encounter Care Teams Airplane Pilot Photogrammetry Relationship Specialty Start Date End Date Tanja Patricia MD [address] [place] [address] PCP - General Family Medicine 11/11/18 Barron Jernigan FNP [address] [place] [address] Nurse Practitioner Family Medicine 10/07/23 Jonny Jaime, TAM [address] [place] [address] Registered Nurse Family Medicine 07/27/25 Ernesto Carroll 07/27/25 documented as of this encounter
[2025-08-05 13:59] LABS: Potassium 3.6 mmol/L (3.3-5.1)
--- OUTSIDE RECORDS SUMMARY | 2025-08-05 16:12 | XMS_ITS | Encounter Summary ---
Author Organization [facility] Address [address] [facility] 7t [place] [address] Care Team Providers Care Flight Director Name Role Phone Tanja Patricia MD Primary Care Provider [phone] Barron Jernigan Unavailable Unavailable Jonny Jaime RN Unavailable [phone] Ernesto Carroll Unavailable Encounter Details Date Type Department Care Team (Late st Contact Info) Description 03/09/2024 Orders Only [facility] [address] [place] [address] Provider, MD [facility] Social History Tobacco Use Types Packs/Day Years [...] Region Laterality Modality Abdomen Radiographic Annabel ging Historical Provider MD WHITE XR PROCEDURES Final R esult documented in this encounter Visit Diagnoses Not on filedocumented in this encounter Additional Health Concerns Assessment Noted Time PHQ-9 Depression Total Score: 5 12/05/19 24 10:18 AM EST documented as of this encounter Care Teams Flight Director Relationship Specialty Start Date End Date Tanja Patricia MD [address] [place] [address] PCP - General Family Medicine 11/11/18 Barron Jernigan FNP [address] [place] [address] Nurse Practitioner Family Medicine 10/07/23 Jonny Jaime, TAM [address] [place] [address] Registered Nurse Family Medicine 07/27/25 Ernesto Carroll 07/27/25 documented as of this encounter
--- OUTSIDE RECORDS SUMMARY | 2025-08-05 16:13 | XMS_ITS | Encounter Summary ---
Author Organization [facility] Address [address] [facility] 7t [place] [address] Care Team Providers Care Property Master Name Role Phone Tanja Patricia MD Primary Care Provider [phone] Barron Jernigan Unavailable Unavailable Jonny Jaime RN Unavailable [phone] Ernesto Carroll Unavailable Reason for Visit * Reason Comments Med Refill Encounter Details Date Type Department Care Team ([facility] st Contact Info) Description 03/31/2024 Refill [facility] [address] [place], [place] [phone] Tanja Patricia MD [address] [place] [address] Chronic pain syndrome; Gastroesophageal reflux disease without esophagitis Social History Tobacco Use Types Packs/Day Years [...] on file documented as of this encounter Visit Diagnoses Diagnosis Chronic pain syndrome Gastroesophageal reflux disease without esophagitis Esophageal reflux documented in this encounter Additional Health Concerns Assessment Noted Time PHQ-9 Depression Total Score: 5 12/05/19 24 10:18 AM EST documented as of this encounter Care Teams Property Master Relationship Specialty Start Date End Date Tanja Patricia MD [address] [place] [address] PCP - General Family Medicine 11/11/18 Barron Jernigan FNP [address] [place] [address] Nurse Practitioner Family Medicine 10/07/23 Jonny Jaime, TAM [address] [place] [address] Registered Nurse Family Medicine 07/27/25 Ernesto Carroll 07/27/25 documented as of this encounter
--- OUTSIDE RECORDS SUMMARY | 2025-08-05 16:13 | XMS_ITS | Encounter Summary ---
Author Organization [facility] Address [address] [facility] [address]t [place] [address] Care Team Providers Care Mechanical Engineer Name Role Phone Tanja Patricia MD Primary Care Provider [phone] Barron Jernigan Unavailable Unavailable Jonny Jaime RN Unavailable [phone] Ernesto Carroll Unavailable Encounter Details Date Type Department Care Team (Late st Contact Info) Description 05/18/2024 Orders Only [facility] [address] [place] [address] Provider, MD [facility] Social History Tobacco Use Types Packs/Day Years Used Date Smoking Tobacco: Former Cigarettes Passive Smoke Exposure: Past Smokeless Tobacco: Never Depression Answer Date Recorded Patient Health Questionnaire-9 Score 7 05/05/2024 Patient Health Questionnaire-9 Score 7 05/05/2024 Last PHQ-9: Questionnaire Data Not on file 0 05/05/2024 Housing Stability Answer Date Recorded What is [...] Date Recorded Patient Health Questionnaire-2 Score 2 05/05/2024 Sex and Gender Information Value Date Recorded Sex Assigned at Male 09/10/2022 10:18 AM EDT Legal Sex Male 10:18 AM EDT Gender Identity Male 09/10/2022 10:18 AM EDT Sexual Orientation Straight 09/10/2022 10 :18 AM EDT documented as of this encounter Plan of Treatment Not on file documented as of this encounter Procedures Procedure Name Priority Date/Time Associated Diagnosis Comments VASC US LOWER EXTREMITY VENOUS DUPLEX RIGHT Routine 05/16/2024 2:56 PM EDT documented in this encounter Results * Vascular US lower extremity venous duplex right (05/16/2024 2:56 PM EDT) us Historical Provider CV VASCULAR PROCEDURES Fi nal Result documented in this encounter Visit Diagnoses Not on filedocumented in this encounter Additional Health Concerns Assessment Noted Time PHQ-9 Depression Total Score: 7 05/05/20 24 9:28 AM EDT documented as of this encounter Care Teams Mechanical Engineer Relationship Specialty Start Date End Date Tanja Patricia MD [address] [place] [address] PCP - General Family Medicine 11/11/18 Barron Jernigan FNP [address] [place] [address] Nurse Practitioner Family Medicine 10/07/23 Jonny Jaime, TAM [address] [place] [address] Registered Nurse Family Medicine 07/27/25 Ernesto Carroll 07/27/25 documented as of this encounter
--- OUTSIDE RECORDS SUMMARY | 2025-08-05 16:13 | XMS_ITS | Encounter Summary ---
Author Organization [employer] Address [address] [facility] 7[address] [place] [address] Care Team Providers Care Security And Compliance Project Manager Name Role Phone Tanja Patricia MD Primary Care Provider Barron Jernigan Unavailable Unavailable Jonny Jaime RN Unavailable [phone] Ernesto Carroll Unavailable Reason for Visit * Reason Comments Med Refill Encounter Details Date Type Department Care Team (Late st Contact Info) Description 05/08/[address] [facility] [address] [place] [address] Barron Jernigan FNP Tobacco dependence syndrome Social History Tobacco Use Types Packs/Day Years [...] as of this encounter Visit Diagnoses Diagnosis Tobacco dependence syndrome Tobacco use disorder documented in this encounter Additional Health Concerns Assessment Noted Time PHQ-9 Depression Total Score: 7 05/05/20 24 9:28 AM EDT documented as of this encounter Care Teams Security And Compliance Project Manager Relationship Specialty Start Date End Date Tanja Patricia MD [address] [place] [address] PCP - General Family Medicine 11/11/18 Barron Jernigan FNP [address] [place] [address] Nurse Practitioner Family Medicine 10/07/23 Jonny Jaime, TAM [address] [place] [address] Registered Nurse Family Medicine 07/27/25 Ernesto Carroll 07/27/25 documented as of this encounter
--- OUTSIDE RECORDS SUMMARY | 2025-08-05 16:13 | XMS_ITS | Encounter Summary ---
Author Organization [employer] Address [address] [facility] 7t [place] [address] Care Team Providers Care Stem Roller Or Crusher Operator Name Role Phone Tanja Patricia MD Primary Care Provider [phone] Barron Jernigan Unavailable Unavailable Jonny Jaime RN Unavailable [phone] Ernesto Carroll Unavailable Reason for Visit * Reason Onset Date Comments PT1 02/19/2024 Encounter Details Date Type Department Care Team ([facility] st Contact Info) Description 02/19/2024 Telephone [facility] [address] [place] [address] Tanja Patricia MD [address] [place] [address] PT1 Social History Tobacco Use Types Packs/Day Years [...] AM EDT documented as of this encounter Miscellaneous Notes * Telephone Encounter - Leanna Park - 02/19/2024 11:15 AM EDT PT-1 submitted for patient. They will receive a letter of approval or denial in the mail. * Telephone Encounter - Shyann Andrews - 02/19/2024 10:28 AM EDT Patient calling requesting PT1 renewal Home Address verified: Y/N: Yes Provider name or facility name: [facility] Facility Address: [address] [place] [address] Escort needed: Y/N: No Do you have a wheelchair: Y/N: No If yes- Manual or electric: N/a Visits: n/a documented in this encounter Plan of Treatment Not on file documented as of this encounter Visit Diagnoses Not on filedocumented in this encounter Additional Health Concerns Assessment Noted Time PHQ-9 Depression Total Score: 5 12/05/19 24 10:18 AM EST documented as of this encounter Care Teams Stem Roller Or Crusher Operator Relationship Specialty Start Date End Date Tanja Patricia MD [address] [place] [address] PCP - General Family Medicine 11/11/18 Barron Jernigan FNP [address] [place] [address] Nurse Practitioner Family Medicine 10/07/23 Jonny Jaime, RN [address] [place] [address] Registered Nurse Family Medicine 07/27/25 Ernesto Carroll 07/27/25 documented as of this encounter
--- OUTSIDE RECORDS SUMMARY | 2025-08-05 16:13 | XMS_ITS | Encounter Summary ---
Author Organization [employer] Address 75 [facility] 7t [place] [address] Care Team Providers Care Director Of Dietary Name Role Phone Tanja Patricia MD Primary Care Provider [phone] Barron Jernigan Unavailable Unavailable Jonny Jaime RN Unavailable [phone] Ernesto Carroll Unavailable Reason for Visit * Reason Comments Med Refill Encounter Details Date Type Department Care Team ([facility] st Contact Info) Description 04/02/2024 Refill [facility] CHC MED & PEDS [address] [place], [place] [phone] Tanja Patricia MD [address] [place] [address] Social History Tobacco Use Types Packs/Day Years [...] documented as of this encounter Care Teams Director Of Dietary Relationship Specialty Start Date End Date Tanja Patricia MD [address] [place] [address] PCP - General Family Medicine 11/11/18 Barron Jernigan FNP [address] [place] [address] Nurse Practitioner Family Medicine 10/07/23 Jonny Jaime, TAM [address] [place] [address] Registered Nurse Family Medicine 07/27/25 Ernesto Carroll 07/27/25 documented as of this encounter
--- OUTSIDE RECORDS SUMMARY | 2025-08-05 16:14 | XMS_ITS | Encounter Summary ---
Author Organization [employer] Address 75 [facility] 7 [place] [address] Care Team Providers Care Airline Counter Agent Name Role Phone Tanja Patricia MD Primary Care Provider Barron Jernigan FILLETER Unavailable Unavailable Jonny Jaime RN Unavailable [phone] Ernesto Carroll Unavailable Reason for Referral * Consultation (Routine) - Authorized Specialty Diagnoses / Procedures Referred By Contniurka t Referred To Contact Pharmacy Diagnoses Benign essential hypertension Spencer Melton MD [address] [place] [address] Phone: tel: fax: Referral ID Status Reason Start Date Expiration Date Visits Requested Visits Authorized [id number] Authorized Continuity of Care 07/09/2025 07/09/2026 6 6 Encounter Details Date Type Department Care Team ([facility] Contact Info) Description 07/05/2025 Orders Only [facility] CHC MED & PEDS [address] [place], [place] [phone] Tanja Patricia MD [address] [place], [place] [phone] Benign essential hypertension (Primary Dx) Social History Tobacco Use Types Packs/Day Years [...] as of this encounter Plan of Treatment Scheduled Referrals Name Type Priority Associated Diagnoses Orde r Schedule Referral to Pharmacy MTM Outpatient Referral Routine Benign essential hypertension Ordered: 07/09/2025 documented as of this encounter Visit Diagnoses Diagnosis Benign essential hypertension- Primary Essential hypertension, benign documented in this encounter Additional Health Concerns Assessment Noted Time PHQ-9 Depression Total Score: 17 025 10:22 AM EDT documented as of this encounter Care Teams Airline Counter Agent Relationship Specialty Start Date End Date Tanja Patricia MD [address] [place] [address] PCP - General Family Medicine 11/11/18 Barron Jernigan FNP [address] [place] [address] Nurse Practitioner Family Medicine 10/07/23 Jonny Jaime, TAM [address] [place] [address] Registered Nurse Family Medicine 07/27/25 Ernesto Carroll 07/27/25 documented as of this encounter
--- OUTSIDE RECORDS SUMMARY | 2025-08-05 16:14 | XMS_ITS | Encounter Summary ---
Author Organization [employer] Address 75 [facility] 7t [place] [address] Care Team Providers Care Manager Field Services Name Role Phone Tanja Patricia MD Primary Care Provider [phone] Barron Jernigan Unavailable Unavailable Jonny Jaime RN Unavailable [phone] Ernesto Carroll Unavailable Reason for Visit * Reason Comments Med Refill Encounter Details Date Type Department Care Team ([facility] Contact Info) Description 07/27/[address] [facility] CHC MED & PEDS [address] [place], [place] [phone] Lucero Gordon MD [address] [place] [address] Bipolar affective disorder, remission status unspecified (CMS/[facility]) Social History Tobacco Use Types Packs/Day Years [...] as of this encounter Visit Diagnoses Diagnosis Bipolar affective disorder, remission status unspecified (CMS/[facility]) documented in this encounter Additional Health Concerns Assessment Noted Time PHQ-9 Depression Total Score: 17 025 10:22 AM EDT documented as of this encounter Care Teams Manager Field Services Relationship Specialty Start Date End Date Tajna Patricia MD [address] [place] [address] PCP - General Family Medicine 11/11/18 Barron Jernigan FNP [address] [place] [address] Nurse Practitioner Family Medicine 10/07/23 Jnony Jaime, TAM [address] [place] [address] Registered Nurse Family Medicine 07/27/25 Ernesto Carroll 07/27/25 documented as of this encounter
--- OUTSIDE RECORDS SUMMARY | 2025-08-05 16:14 | XMS_ITS | Encounter Summary ---
Author Organization [employer] Address 75 [facility] 7t [place] [address] Care Team Providers Care Chain Sales Representative Name Role Phone Tanja Patricia MD Primary Care Provider [phone] Barron Jernigan Unavailable Unavailable Jonny Jaime RN Unavailable [phone] Ernesto Carroll Unavailable Reason for Visit * Reason Comments Care Coordination C3CM/TATA [place], initial assessment scheduled Encounter Details Date Type Department Care Team (Latest Contact Info) Description 08/03/2025 Patient Outreach [facility] MEDICINE [address] [place] [address] Tanja Patricia MD [address] [place] [address] Care Coordination (C3CM/TATA Carroll, initial assessment scheduled) Social History Tobacco Use Types Packs/Day Years Used Date Smoking Tobacco: Former Cigarettes Passive Smoke Exposure: Past Smokeless Tobacco: Never Depression Answer Date Recorded Patient Health Questionnaire-9 Score 17 06/23/2025 Patient Health Questionnaire-9 Score 17 06/23/2025 Last PHQ-9: Questionnaire Data Not on file 0 06/23/2025 Housing Stability Answer Date Recorded What is your housing situation today? I have jaynaque grossman 08/26/[address] you [...] AM EDT documented as of this encounter Progress Notes * Ernesto Carroll - 08/03/2025 11:36 AM EDT CHW Ernesto Carroll, placed outbound call to patient introducing herself from [facility] CM Department, in regards to offering for C3 Adult Complex Care Program. Patient's name and was confirmed. Patient agrees to participate in program. Appt. for initial assessment scheduled for 08/10/25 @ 10:00 AM in person with CM/RN Jonny Jaime. CHW offered assistance with ED f/u appointment but patient stated that he would rather go to walk-in clinic at [facility] tomorrow. CHW reinforced direct contact information or CM for any additional questions or concerns and extended clinic hours on Mondays and Wednesdays, and Walk-In Urgent Care Located in [facility]. Patient provided with after-hours line for [facility], , which offer night triage service and option to transfer to lemon grower provider if needed. Patient verbalizes understanding, and able to repeat back to health science writer. documented in this encounter Plan of Treatment Not on file documented as of this encounter Visit Diagnoses Not on filedocumented in this encounter Additional Health Concerns Assessment Noted Time PHQ-9 Depression Total Score: 17 2 025 10:22 AM EDT documented as of this encounter Care Teams Chain Sales Representative Relationship Specialty Start Date End Date Begolli, Tanja, MD [address] [place] [address] PCP - General Family Medicine 11/11/18 Barron Jernigan FNP [address] [place] [address] Nurse Practitioner Family Medicine 10/07/23 Jonny Jaime, TAM [address] [place] [address] Registered Nurse Family Medicine 07/27/25 Ernesto Carroll 07/27/25 documented as of this encounter
--- OUTSIDE RECORDS SUMMARY | 2025-08-05 16:14 | XMS_ITS ---
Author Organization [employer] Address 75 [facility] 7t [place] [address] Care Team Providers Care Midwife [facility] Owner Name Role Phone Tanja Patricia MD Primary Care Provider [phone] Barron Jernigan Unavailable Unavailable Jonny Jaime RN Unavailable Ernesto Carroll Unavailable CHW Complex Status:Outreach In Progress (Enrolling) Start date:07/27/2025 Enrollment reason:ADT Feed Overview ED- Pt went to [facility] ED on 07/26/25. Case Team Name Relationship Phone Ernesto Carroll(Responsible Staff) [phone] Continued Care and Services Coordination
--- OUTSIDE RECORDS SUMMARY | 2025-08-05 16:14 | XMS_ITS | Encounter Summary ---
Author Organization [employer] Address 75 [facility] 7t [place] [address] Care Team Providers Care Business Planning Analyst Name Role Phone Tanja Patricia MD Primary Care Provider [phone] Barron Jernigan Unavailable Unavailable Jonny Jaime RN Unavailable [phone] Ernesto Carroll Unavailable Reason for Visit * Reason Comments Care Coordination C3CM/CHW NAEEM Berger #2 outreach Encounter Details Date Type Department Care Team (Latest Contact Info) Description 08/02/2025 Patient Outreach [facility] MEDICINE [address] [place] [address] Tanja Patricia MD [address] [place] [address] Care Coordination (C3ED/NAEEM Martinez #2 outreach) Social History Tobacco Use Types Packs/Day Years [...] encounter Progress Notes * Ernesto Carroll - 08/02/2025 10:56 AM EDT CHW Ernesto Carroll, placed outbound call to patient introducing herself from [facility] CM Department, in regards to offering for C3 Adult Complex Care Program. Patient's name and was confirmed. Patient requested a call back tomorrow 08/03/25 in the morning. CHW will call then. documented in this encounter Plan of Treatment Not on file documented as of this encounter Visit Diagnoses Not on filedocumented in this encounter Additional Health Concerns Assessment Noted Time PHQ-9 Depression Total Score: 17 025 10:22 AM EDT documented as of this encounter Care Teams Business Planning Analyst Relationship Specialty Start Date End Date Tanja Patricia MD [address] [place] [address] PCP - General Family Medicine 11/11/18 Barron Jernigan FNP [address] [place] [address] Nurse Practitioner Family Medicine 10/07/23 Jonny Jaime, TAM [address] [place] [address] Registered Nurse Family Medicine 07/27/25 Ernesto Carroll 07/27/25 documented as of this encounter
--- OUTSIDE RECORDS SUMMARY | 2025-08-05 16:14 | XMS_ITS ---
Author Organization [employer] Address 75 [facility] 7t [place] [address] Care Team Providers Care Nursing Clerk Name Role Phone Tanja Patricia MD Primary Care Provider [phone] Barron Jernigan Unavailable Unavailable Jonny Jaime RN Unavailable [phone] Ernesto Carroll Unavailable CM Complex Status:Outreach In Progress (Enrolling) Start date:07/27/2025 Enrollment reason:ADT Feed Overview ED- Pt went to [facility] ED on 07/26/25. Case Team Name Relationship Phone Jonny Jaime RN(Responsible Staff) Registered N stephany [phone] Continued Care and Services Coordination
--- OUTSIDE RECORDS SUMMARY | 2025-08-05 16:15 | XMS_ITS | Encounter Summary ---
Author Organization [employer] Address 75 [facility] 7t [place] [address] Care Team Providers Care Twisting Operator Name Role Phone Tanja Patricia MD Primary Care Provider [phone] Barron Jernigan Unavailable Unavailable Jonny Jaime RN Unavailable [phone] Ernesto Carroll Unavailable Reason for Visit * Reason Comments Med Refill Encounter Details Date Type Department Care Team ([facility] st Contact Info) Description 03/17/2023 Refill [facility] MEDICINE [address] [place] [address] Tanja Patricia MD [address] [place] [address] Mixed hyperlipidemia Social History Tobacco Use Types Packs/Day Years Used Date Smoking Tobacco: Former Cigarettes Passive Smoke Exposure: Past Smokeless Tobacco: Never Sex and Gender Information Value Date Recorded Sex Assigned at Male 09/10/2022 10:18 AM EDT Legal Sex Male 10:18 AM EDT Gender Identity Male 09/10/2022 10:18 AM EDT Sexual Orientation Straight 09/10/2022 10 :18 AM EDT COVID-19 Exposure Response Date Recorded In the last 10 days, have yo u been in contact with someone who was confirmed or suspected to have Coronavirus/COVID-19? No / Unsure 03/20/2023 9:37 AM EDT documented as of this encounter Plan of Treatment Not on file documented as of this encounter Visit Diagnoses Diagnosis Mixed hyperlipidemia documented in this encounter Additional Health Concerns Assessment Noted Time PHQ-9 Depression Total Score: 5 12/13/19 23 9:18 AM EST documented as of this encounter Care Teams Twisting Operator Relationship Specialty Start Date End Date Tanja Patricia MD [address] [place] [address] PCP - General Family Medicine 11/11/18 Barron Jernigan FNP [address] [place] [address] Nurse Practitioner Family Medicine 10/07/23 Jonny Jaime, TAM [address] [place], [place] [phone] Registered Nurse Family Medicine 07/27/25 Ernesto Carroll 07/27/25 documented as of this encounter
--- OUTSIDE RECORDS SUMMARY | 2025-08-05 16:15 | XMS_ITS | Encounter Summary ---
Author Organization [employer] Address 75 [facility] 7t [place] [address] Care Team Providers Care Internal Security Manager Name Role Phone Tanja Patricia MD Primary Care Provider [phone] Barron Jernigan Unavailable Unavailable Jonny Jaime RN Unavailable [phone] Ernesto Carroll Unavailable Reason for Visit * Reason Onset Date Comments PT1 03/29/2025 Encounter Details Date Type Department Care Team ([facility] st Contact Info) Description 03/29/2025 Telephone [facility] MEDICINE [address] [place] [address] Tanja Patricia MD [address] [place] [address] PT1 Social History Tobacco Use Types Packs/Day [...] encounter Miscellaneous Notes * Telephone Encounter - Sharmaine Melgoza - 03/29/2025 12:01 PM EDT Patient calling requesting PT1 Home Address verified: Y/N: Yes Provider name or facility name: [facility] [address] [place] [address]. Escort needed: Y/N: No Do you have a wheelchair: Y/N: No If yes- Manual or electric: N/A Visits: (1x daily) documented in this encounter Plan of Treatment Not on file documented as of this encounter Visit Diagnoses Not on filedocumented in this encounter Additional Health Concerns Assessment Noted Time PHQ-9 Depression Total Score: 7 05/05/20 24 9:28 AM EDT documented as of this encounter Care Teams Internal Security Manager Relationship Specialty Start Date End Date Tanja Patricia MD [address] [place] [address] PCP - General Family Medicine 11/11/18 Barron Jernigan FNP [address] [place] [address] Nurse Practitioner Family Medicine 10/07/23 Jonny Jaime, TAM [address] [place] [address] Registered Nurse Family Medicine 07/27/25 Ernesto Carroll 07/27/25 documented as of this encounter
--- OUTSIDE RECORDS SUMMARY | 2025-08-05 16:15 | XMS_ITS | Encounter Summary ---
Author Organization [employer] Address 75 [facility] 7t [place] [address] Care Team Providers Care Combatant Diver Qualified Name Role Phone Tanja Patricia MD Primary Care Provider Barron Jernigan Unavailable Unavailable Jonny Jaime RN Unavailable [phone] Ernesto Carroll Unavailable Reason for Visit * Reason Comments Med Refill Encounter Details Date Type Department Care Team ([facility] st Contact Info) Description 06/22/2025 Refill C CHC MED & PEDS [address] [place], [place] [phone] Tanja Patricia MD [address] [place] [address] Social History Tobacco Use Types Packs/Day Years [...] AM EDT documented as of this encounter Functional Status * Over the past 2 weeks, how often have you been bothered by any of the following problems? Question Answer Date of Assessment Author Patient Health Questionnaire -2 Score 2 06/23/2025 10:22 AM EDT Jocy Aguillon MA * Little interest or pleasure in doing things Answer Date of Assessment Author Several days 06/23/2025 10:22 AM Zoie Perez MA * Feeling down, depressed, or hopeless Answer Date of Assessment Author Several days 06/23/2025 10:22 AM Zoie Perez MA * Trouble falling or staying asleep, or sleeping too much Answer Date of Assessment Author More than half the days 06/23/2025 10:22 AM Zoie Romero MA * Feeling tired or having little energy Answer Date of Assessment Author Nearly every day 06/23/2025 10:22 AM Zoie Garay MA * Poor appetite or overeating Answer Date of Assessment Author More than half the days 06/23/2025 10:22 AM Zoie Romero MA * Feeling bad about yourself - or that you are a failure or have let yourself or your family down Answer Date of Assessment Author Nearly every day 06/23/2025 10:22 AM Zoie Garay MA * Trouble concentrating on things, such as reading the newspaper or watching television Answer Date of Assessment Author Nearly every day 06/23/2025 10:22 AM Zoie Garay MA * Moving or speaking so slowly that other people could have noticed? Or the opposite - being so fidgety or restless that you have been moving around a lot more than usual. Answer Date of Assessment Author Several days 06/23/2025 10:22 AM EDT Zoie Lanza MA * Thoughts that you would be better off or hurting yourself in some way Answer Date of Assessment Author Several days 06/23/2025 10:22 AM EDT Zoie Lanza MA * Patient Health Questionnaire-9 Score Answer Date of Assessment Author 17 06/23/2025 10:22 AM EDT Zoie Lanza MA * How difficult have these problems made it for you to do your work, take care of things at home, or get along with other people? Answer Date of Assessment Author Somewhat difficult 06/23/2025 10:22 AM EDT Zoie Hopkins MA documented as of this encounter Plan of Treatment Not on file documented as of this encounter Visit Diagnoses Not on filedocumented in this encounter Additional Health Concerns Assessment Noted Time PHQ-9 Depression Total Score: 7 05/05/20 24 9:28 AM EDT documented as of this encounter Care Teams Combatant Diver Qualified Relationship Specialty Start Date End Date Tanja Patricia MD [address] [place] [address] PCP - General Family Medicine 11/11/18 Barron Jernigan FNP [address] [place] [address] Nurse Practitioner Family Medicine 10/07/23 Jonny Jaime, TAM [address] [place] [address] Registered Nurse Family Medicine 07/27/25 Ernesto Carroll 07/27/25 documented as of this encounter
--- OUTSIDE RECORDS SUMMARY | 2025-08-05 16:15 | XMS_ITS | Encounter Summary ---
Author Organization [employer] Address 75 [facility] 7 [place] [address] Care Team Providers Care Immigration Law Specialist Name Role Phone Tanja Patricia MD Primary Care Provider [phone] Barron Jernigan Unavailable Unavailable Jonny Jaime RN Unavailable [phone] Ernesto Carroll Unavailable Reason for Visit * Reason Comments Med Refill Encounter Details Date Type Department Care Team ([facility] st Contact Info) Description 12/17/2022 Refill [facility] CHC MED & PEDS [address] [place], [place] [phone] Tanja Patricia MD [address] [place] [address] Chronic pain syndrome (Primary Dx); Gastroesophageal reflux disease without esophagitis Social History [...] suspected to have Coronavirus/COVID-19? No / Unsure 12/12/2022 8:51 AM EST documented as of this encounter Plan of Treatment Not on file documented as of this encounter Visit Diagnoses Diagnosis Chronic pain syndrome- Primary Gastroesophageal reflux disease without esophagitis Esophageal reflux documented in this encounter Additional Health Concerns Assessment Noted Time PHQ-9 Depression Total Score: 5 12/13/19 23 9:18 AM EST documented as of this encounter Care Teams Immigration Law Specialist Relationship Specialty Start Date End Date Tanja Patricia MD [address] [place] [address] PCP - General Family Medicine 11/11/18 Barron Jernigan FNP [address] [place] [address] Nurse Practitioner Family Medicine 10/07/23 Jonny Jaime, TAM [address] [place] [address] Registered Nurse Family Medicine 07/27/25 Ernesto Carroll 07/27/25 documented as of this encounter
--- OUTSIDE RECORDS SUMMARY | 2025-08-05 16:15 | XMS_ITS | Encounter Summary ---
Author Organization [employer] Address 75 [facility] 7 [place] [address] Care Team Providers Care Mobile Equipment Mechanic Name Role Phone Tanja Patricia MD Primary Care Provider Barron Jernigan Unavailable Unavailable Jonny Jaime RN Unavailable [phone] Ernesto Carroll Unavailable Reason for Visit * Reason Comments Med Refill Encounter Details Date Type Department Care Team ([facility] st Contact Info) Description 07/18/2023 Refill C [facility]EDS [address] [place], [place] [phone] Lucero Gordon MD [address] [place] [address] Social History Tobacco Use Types Packs/Day Years [...] documented as of this encounter Care Teams Mobile Equipment Mechanic Relationship Specialty Start Date End Date Tanja Patricia MD [address] [place] [address] PCP - General Family Medicine 11/11/18 Barron Jernigan FNP [address] [place] [address] Nurse Practitioner Family Medicine 10/07/23 Jonny Jaime, TAM [address] [place] [address] Registered Nurse Family Medicine 07/27/25 Ernesto Carroll 07/27/25 documented as of this encounter
--- OUTSIDE RECORDS SUMMARY | 2025-08-05 16:15 | XMS_ITS | Encounter Summary ---
Author Organization [employer] Address 75 [facility] 7 [place] [address] Care Team Providers Care Deburrer Machine Name Role Phone Tanja Patricia MD Primary Care Provider [phone] Barron Jernigan Unavailable Unavailable Jonny Jaime RN Unavailable [phone] Ernesto Carroll Unavailable Reason for Visit * Reason Comments Med Refill Encounter Details Date Type Department Care Team ([facility] st Contact Info) Description 12/15/2024 Refill [facility]C MED & PEDS [address] [place], [place] [phone] Tanja Patricia MD [address] [place] [address] Bipolar affective disorder, remission status unspecified (CMS/HCC) Social History Tobacco Use Types Packs/Day Years [...] Diagnosis Bipolar affective disorder, remission status unspecified (CMS/[facility]) documented in this encounter Additional Health Concerns Assessment Noted Time PHQ-9 Depression Total Score: 7 05/05/20 24 9:28 AM EDT documented as of this encounter Care Teams Deburrer Machine Relationship Specialty Start Date End Date Tanja Patricia MD [address] [place] [phone] PCP - General Family Medicine 11/11/18 Barron Jernigan FNP [address] [place] [address] Nurse Practitioner Family Medicine 10/07/23 Jonny Jaime, TAM [address] [place] [address] Registered Nurse Family Medicine 07/27/25 Ernesto Carroll 07/27/25 documented as of this encounter
--- OUTSIDE RECORDS SUMMARY | 2025-08-05 16:15 | XMS_ITS | Encounter Summary ---
Author Organization [employer] Address [address] [facility] 7t [place] [address] Care Team Providers Care Administrative Accountant Name Role Phone Tanja Patricia MD Primary Care Provider Barron Jernigan Unavailable Unavailable Jonny Jaime RN Unavailable [phone] Ernesto Carroll Unavailable Encounter Details Date Type Department Care Team (Late st Contact Info) Description 11/22/[address] [facility] CHC MED & PEDS [address] [place] [address] Abril Duggan LPN Social History Tobacco Use Types Packs/Day Years Used Date Smoking Tobacco: Never Assessed Sex and Gender Information Value Date Recorded Sex Assigned at Male 09/10/2022 10:18 AM EDT Legal Sex Male 10:18 AM EDT Gender Identity Male 09/10/2022 10:18 AM EDT Sexual Orientation Straight 09/10/2022 10 :18 AM EDT documented as of this encounter Plan of Treatment Not on file documented as of this encounter Visit Diagnoses Not on filedocumented in this encounter Care Teams Administrative Accountant Relationship Specialty Start Date End Date Tanja Patricia MD [address] [place] [address] PCP - General Family Medicine 11/11/18 Barron Jernigan FNP [address] [place] [address] Nurse Practitioner Family Medicine 10/07/23 Jonny Jaime, RN [address] [place] [address] Registered Nurse Family Medicine 07/27/25 Ernesto Carroll 07/27/25 documented as of this encounter
--- OUTSIDE RECORDS SUMMARY | 2025-08-05 16:15 | XMS_ITS | Clinical Summary ---
Author Organization [employer] Address [address] [facility] [address] [place] [address] Care Team Providers Care Conductor Pullman Name Role Phone Tanja Patricia MD Primary Care Provider [phone] Barron Jernigan Unavailable Unavailable Jonny Jaime RN Unavailable [phone] Ernesto Carroll Unavailable Allergies No known active allergies Medications * This document contains information received from the source organization and may not represent a complete record from that organization. melatonin 5 MG tabletIndications :Bipolar affective disorder, remission status unspecified (CMS/HCC) Take 1 tablet (5 mg) by mouth if needed at bedtime (sleep). 90 tablet 3 024 Active nicotine polacrilex (Nicorette) 2 MG gumIndications:To bacco dependence syndrome CHEW ONE piece of GUM EVERY 2 HOURS NEEDED DIRECTED 100 each 3 024 Active tiZANidine (Zanaflex) 4 MG tablet Take 1 tablet (4 mg) by mouth every 6 (six) hours if needed for muscle spasms for up to 10 days. 30 tablet 024 Active rosuvastatin (Crestor) 10 MG tablet TAKE ONE TABLET EVERY MORNING 90 tablet 3 024 Active tamsulosin (Flomax) 0.4 MG 24 hr capsule Take 1 capsule (0.4 mg) by mouth Once per day. 30 capsule 5 024 Active Blood Pressure kitIndications:Pr imary hypertension Check BP daily 1 kit 024 Active chlorthalidone (Hygroton) 50 MG tablet TAKE ONE TABLET DAILY 30 tablet 11 025 Active omeprazole (PriLOSEC) [address] capsuleIndication s:Chronic pain syndrome,Gastroes ophageal reflux disease without esophagitis TAKE 1 CAPSULE DAILY BEFORE A MEAL 90 capsule 1 025 Active tadalafil (Cialis) 20 MG tablet TAKE 1 TABLET 1 HOUR BEFORE SEXUAL RELATIONS ONCE DAILY NEEDED. 10 tablet 1 025 Active cloNIDine (Catapres) 0.1 MG tabletIndications :Bipolar affective disorder, remission status unspecified (CMS/HCC) Take 1 tablet (0.1 mg) by mouth 2 times daily. 180 tablet 025 Active naproxen (Naprosyn) 500 MG tablet TAKE ONE TABLET TWICE DAILY 60 tablet 3 025 Active gabapentin (Neurontin) 300 MG capsuleIndication s:Bipolar affective disorder in remission (CMS/HCC) TAKE TWO CAPSULES THREE TIMES DAILY 180 capsule 3 025 Active prazosin (Minipress) 5 MG capsuleIndication s:Bipolar affective disorder, remission status unspecified (CMS/HCC) TAKE 1 CAPSULE BY MOUTH AT BEDTIME 90 capsule 3 025 Active lamoTRIgine (LaMICtal) 200 MG tabletIndications :Bipolar affective disorder, remission status unspecified (CMS/HCC) TAKE 1 TABLET BY MOUTH TWICE A DAY 180 tablet 3 025 Active zolpidem (Ambien) 10 MG tabletIndications :Bipolar affective disorder, remission status unspecified (CMS/HCC) TAKE ONE TABLET BY MOUTH AT BEDTIME NEEDED FOR SLEEP 30 tablet 025 Active tamsulosin (Flomax) 0.4 MG 24 hr capsule TAKE ONE CAPSULE BY MOUTH EVERY DAY 30 capsule 3 025 Active lidocaine (Lidoderm) 5 % patchIndications: Chronic pain syndrome,Gastroes ophageal reflux disease without esophagitis APPLY 1 PATCH TO SKIN. LEAVE ON FOR 12 HOURS, THEN OFF FOR 12 HOURS DIRECTED. 30 patch 5 025 Active fluocinonide (Lidex) 0.05 % creamIndications: Mixed hyperlipidemia APPLY TO FACE TWICE DAILY 15 g 025 Active Diclofenac Sodium 1 % gelIndications:Le ft leg pain Apply 1 Application topically if needed in the morning, at noon, in the evening, and at bedtime (pain) for up to 7 days. 100 g 025 2024 Active lidocaine (Lidoderm) 5 % patchIndications: Chronic pain syndrome,Gastroes ophageal reflux disease without esophagitis APPLY 1 PATCH TO SKIN. LEAVE ON FOR 12 HOURS, THEN OFF FOR 12 HOURS DIRECTED. 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 Also recently noted problems concentrating. This did not coincide with increased dose of Gabapentin. Due to significant drug interactions with Methadone, atypical antipsychotics are relatively contraindicated. Will not change medications at this time. Continue Gabapentin 300 mg 2 TID, Lamotrigine 200 mg BID, Clonidine 0.1 mg BID, Zolpidem 10 mg at bedtime, Prazosin 5 mg at bedtime. Since this provider will be retiring, patient will be referred to new [facility] psychiatric provider. Any issues or concerns, call the health center. All his questions were answered and I have wished him well. He agrees with the plan. r Assessment & Plan (12/05/2023 10:54 AM EST): Patient feels he is doing OK, although mood is still not truly stable. Due to significant drug interactions with Methadone, atypical antipsychotics are relatively contraindicated. He has been getting Gabapentin from PCP, and will now increase that to Gabapentin 300 mg 2 TID. Continue Lamotrigine 200 mg BID, Clonidine 0.1 mg BID, Zolpidem 10 mg at bedtime, Prazosin 5 mg at bedtime. On 09/05/2023 provider informed the patient that I would be retiring, and that we would make every effort to ensure smooth transition of care. Meanwhile, F/U with me in 2 months. He agrees with the plan. Assessment & Plan (09/05/2023 2:14 PM EDT): Mood is more stable, although still having depressive episodes. Will refer for counseling. Nightmares improved since discontinuing Atorvastatin. Due to significant drug interactions with Methadone, atypical antipsychotics are relatively contraindicated. Continue Lamotrigine 200 mg BID, Clonidine 0.1 mg BID, Zolpidem 10 mg at bedtime. He also gets Gabapentin 300 mg 1 am, 1 noon, and 2 bedtime from his PCP. Today 09/05/2023 provider informed the patient that I would be retiring within the next year of so, and that we would make every effort to ensure smooth transition of care. F/U with me in approx. 1 month. He agrees with the plan. Assessment & Plan (08/05/2023 2:48 PM EDT): Mood is not adequately stabilized. He is on maximum dose of Lamotrigine. Due to significant drug interactions with Methadone, atypical antipsychotics are relatively contraindicated. Not sleeping well with nightmares. He is on Atorvastatin which can be associated with nightmares. This provider will discuss with his PCP whether it would be reasonable to change his antihyperlipidemic to an alternate medication. Also, he is morbidly obese, and might benefit from evaluation for sleep apnea. For now, continue Lamotrigine 200 mg BID, Clonidine 0.1 mg BID, Zolpidem 10 mg at bedtime. He also gets Gabapentin 300 mg 1 am, 1 noon, and 2 bedtime from his PCP. F/U with me in 1 month. He agrees with the plan. Assessment & Plan (12/13/2022 9:42 AM EST): For anxiety, will increase to Clonidine 0.1 mg BID. Continue other medications as usual. F/U with me in 2 months. He agrees with the plan. Mixed hyperlipidemia 01/06/2016 Obstructive sleep apnea of adult 01/19/2013 Opioid dependence 03/04/2012 Benign essential hypertension 02/28/2012 Tobacco dependence syndrome 02/28/2012 Encounters Date Type Department Care Team Description 08/05/2025 10:40 AM EDT Office Visit [facility] [address] [address] Hypokalemia (Primary Dx); Left leg pain; Microscopic hematuria 08/05/2025 Travel 08/03/2025 Patient Outreach [address] [address] Tanja Patricia MD Care Coordination ([facility]/TATA Carroll, initial assessment scheduled) 08/02/2025 Patient Outreach [address] [phone] Tanja Patricia MD Care Coordination ([facility]/TATA Carroll, TC #2 outreach) 07/27/2025 Patient Outreach [address] [address] Tanja Patricia MD Care Coordination ([facility]/TATA Carroll, Initial outreach attempt_lvm) 07/27/2025 Telephone [facility] [address] [place] [address] Tanja Patricia MD ER Follow-up 07/27/2025 Refill [facility] [address] [place] [address] Lucero Gordon MD Bipolar affective disorder, remission status unspecified ([facility]) 07/27/2025 Patient Outreach [address] [address] Tanja Patricia MD Care Coordination ([facility]/TATA Carroll, Chart review) 07/27/2025 Patient Outreach [address] [address] Tanja Patricia MD Care Coordination ([facility]- chart review) 07/27/2025 Refill [facility] [address] [place] [address] Tanja Patircia MD Chronic pain syndrome; Gastroesophageal reflux disease without esophagitis; Mixed hyperlipidemia 07/27/2025 Patient Outreach [address] [address] Tanja Patricia MD 07/21/2025 Refill [facility] [address] [place] [address] Tanja Patricia MD 07/06/2025 Patient Outreach [address] [address] Tanja Patricia MD Care Coordination ([facility]/NAEEM Emanuel #8 initial outreach attempt_closed ) 07/05/2025 Orders Only [facility] [address] [place] [address] Tanja Patricia MD Benign essential hypertension (Primary Dx) 07/05/2025 Telephone [facility] [address] [place] [address] Tanja Patricia MD Error (VOID this visit) 07/01/2025 Results Follow-Up [facility] [address] [place] [address] Lidia Norman RN Basic Metabolic Panel, Hepatic Function Panel, Hemoglobin A1c, Additional followed-up results: 3 07/01/2025 Refill [facility] [address] [place] [address] Tanja Patricia MD Bipolar affective disorder, remission status unspecified (CMS/HCC) 06/29/2025 Patient Outreach [address] [address] Tanja Patricia MD Care Coordination ([facility]/NAEEM Martinez #7 initial outreach attempt_lvm ) 06/23/2025 10:15 AM EDT Office Visit [facility] [address] [place] [address] Tanja Patricia MD Obstructive sleep apnea of adult (Primary Dx); Dietary counseling; Exercise counseling; Benign essential hypertension; Hypokalemia; Screening for colon cancer; Bipolar affective disorder, remission status unspecified (CMS/HCC); Opioid dependence in remission (CMS/HCC) 06/23/2025 Telephone [facility] [address] [place] [address] Tanja Patricia MD PT1 renewals 06/23/2025 Travel 06/22/2025 Telephone [facility] [address] [place] [address] Tanja Patricia MD Chart Prep 06/22/2025 Refill [facility] [address] [place] [address] Tanja Patricia MD 06/18/2025 Refill [facility] [address] [place] [address] Tanja Patricia MD Bipolar affective disorder in remission (CMS/HCC) 06/11/2025 Refill [facility] [address] [place] [address] Tanja Patricia MD Mixed hyperlipidemia 06/09/2025 Refill [facility] [address] [place] [address] Tanja Patricia MD Bipolar affective disorder, remission status unspecified (CMS/HCC) 06/03/2025 Refill [facility] [address] [place] [address] Tanja Patricia MD Bipolar affective disorder, remission status unspecified (CMS/HCC) 06/02/2025 Patient Outreach [facility] [address] [place] [phone] Tanja Patricia MD Care Coordination ([facility] NAEEM Mcnamara #6 initial outreach attempt ) 05/29/2025 Refill [facility] [address] [place] [address] Tanja Patricia MD 05/11/2025 Telephone [facility] [address] [place] [address] Tanja Patricia MD Hypertension 05/11/2025 Refill [facility] [address] [place] [address] Tanja Patricia MD Bipolar affective disorder, remission status unspecified (CMS/HCC) 05/10/[address] [address] Tanja Patricia MD Bipolar affective disorder, remission status unspecified ([facility]/HCC) from Last 3 Months Immunizations Immunization Administration Dates Next Due Hep A, Adult 08/28/2011,02/06/2011 Influenza injectable quadriv alent IIV4 with preservative 08/27/2019,07/29/2018,08/01/2017 Influenza injectable quadriv alent preservative free 08/13/2023,09/14/2021,07/18/2016 Influenza, IIV3, injectable 08/17/2014 Influenza, Split (incl. sven fied surface antigen) 07/30/2013,08/19/2012 Influenza, seasonal, injecta ble, preservative free 11/10/2024,08/05/2015 Pneumococcal Polysaccharide PPSV23 03/11/2008 Tdap 05/20/2014 Zoster, Recombinant 02/24/2025,12/16/2024 Social History Tobacco Use Types Packs/Day Years [...] Orientation Straight 09/10/2022 10 :18 AM EDT Last Filed Vital Signs Vital Sign Reading Time Taken Comments Blood Pressure 134/87 08/05/2025 10:38 AM EDT Pulse 86 08/05/2025 10:38 AM EDT Temperature 36.7 C (98.1 F) 08/05/2025 10:38 AM EDT Respiratory Rate 18 08/05/2025 10:38 AM EDT Oxygen Saturation 97% 08/05/2025 10:38 AM EDT Inhaled Oxygen Concentration - - Weight 132 kg (290 lb) 08/05/2025 10:38 AM EDT Height 188 cm (6' 2 ) 11/10/2024 9:33 AM EST Body Mass Index 37.23 11/10/2024 9:33 AM EST Plan of Treatment Health Maintenance Due Date Last Done Comments CT Colonography 1965 Colonoscopy 1965 Colorectal Cancer Screening 1965 FIT DNA/Cologuard 1965 FIT 1965 FOBT 1965 Sigmoidoscopy 1965 Pneumococcal Vaccine: 50+ Years (2 of 2 - PCV) 2014 03/11/2008 DTaP/Tdap/Td Vaccines (2 - Td or Tdap) 05/20/2024 05/20/2014 SDOH Screening 08/13/2024 08/13/2023 Hepatitis B Vaccines (1 of 3 - Risk 3-dose series) 2024 RSV Patients and Patients Aged 60 years or older (1 - Risk 60-74 years 1-dose series) 2024 COVID-19 Vaccine ( - season) 2025 09/04/2023, 12/04/2021, 01/31/2021, Additional history exists Influenza Vaccine (#1) 2025 , 08/13/2023, 09/14/2021, Additional history exists Depression Monitoring 12/24/2025 06/23/2025, 025 Alcohol/Substance Use Screening 06/23/2026 06/23/2025 Diabetes: Hemoglobin A1C 06/23/2026 025, 09/26/2023, 02/27/2023, Additional history exists Disability Screening 06/23/2026 06/23/2025 Tobacco Screening 08/05/2026 08/05/2025 Lipid Panel 04/03/2029 04/03/2024, 02/09, 10/02/2021, Additional history exists Hepatitis A Vaccines Completed 08/28/2011, 02/07/20 HIV Screening Completed 06/05/2024, 06/01/2022 Zoster Vaccines Completed 02/24/2025, 12/16/2024 HIB Vaccines Aged Out No longer eligi [...] patient's age to complete this topic Meningococcal Vaccine Aged Out No angel alejo eligible based on patient's age to complete this topic RSV under 20 months Aged Out No longe r eligible based on patient's age to complete this topic Rotavirus Vaccines Aged Out No longer eligible based on patient's age to complete this topic Procedures Procedure Name Priority Date/Time Associated Diagnosis Comments XR KNEE 4+ VIEWS LEFT Routine 08/05/2025 12:18 PM EDT Left leg pain POTASSIUM Routine 08/05/2025 11:39 AM EDT Hypokalemia PSA, SCREEN Routine 06/23/2025 10:45 AM EDT Benign essential hypertension TSH W/REFLEX TO FT4 Routine 06/23/2025 1 0:45 AM EDT Dietary counseling Exercise counseling Obstructive sleep apnea of adult Benign essential hypertension VITAMIN B12/FOLATE, SERUM PANEL Routine 06/23/2025 10:45 AM EDT Dietary counseling Exercise counseling Obstructive sleep apnea of adult Benign essential hypertension HEMOGLOBIN A1C Routine 06/23/2025 10:45 AM EDT Dietary counseling Exercise counseling Obstructive sleep apnea of adult Benign essential hypertension HEPATIC FUNCTION PANEL Routine 06/23/2025 10:45 AM EDT Dietary counseling Exercise counseling Obstructive sleep apnea of adult Benign essential hypertension BASIC METABOLIC PANEL Routine 06/23/2025 10:45 AM EDT Dietary counseling Exercise counseling Obstructive sleep apnea of adult Benign essential hypertension Hypokalemia HIV 1/2 ANTIGEN/ANTIBODY, FOURTH GENERATION W/RFL Routine 06/05/2024 12:00 AM EDT Screening examination for STI LIPID PANEL, STANDARD Routine 04/03/2024 10:36 AM EDT Primary hypertension Mixed hyperlipidemia from Last 3 Months or Most Recently Relevant to Health Maintenance Results * XR Knee 4+ Views Left (08/05/2025 12:18 PM EDT) Anatomical Region Laterality Modality Lower Extremities, Knee Left Radiogra [facility] 08/05/2025 12:1 8 PM EDT Narrative 08/05/2025 12:47 [place] [address] XRay Report Signed Patient: Pee Johnson MR#: [id number] 5 : 1965 Acct:[id number] Age/Sex: 59 / M ADM Date: 08/05/25 Loc: HO.HHCX Attending Dr: Spencer Melton MD Ordering Physician: Spencer Melton MD Date of Service: 08/05/25 Procedure(s): XR knee LT 4V Accession Number(s): [id number] cc: Tanja Patricia MD; Spencer Melton MD [...] 08/05/25 1244 DD/ 1218 TD/TT: 08/05/25 1220 M[employer] Good[employer] Cutter: Procedure Note Donotuseinterpreter, Image - 08/05/[address] [address] XRay Report Signed Patient: Pee Johnson AMR#: [id number] 5 : 1965Acct:[id number] Age/Sex: 59 / MADM Date: 08/05/25 Loc: HO.HHCX Attending Dr: Spencer Melton MD Ordering Physician: Spencer Melton MD Date of Service: 08/05/25 Procedure(s): XR knee LT 4V Accession Number(s): [id number] cc: Tanja Patricia MD; Spencer Melton MD [...] 08/05/25 1244 DD/ 1218 TD/TT: 08/05/25 1220 Molded [employer] Good[employer] Cutter: Spencer Melton MD IMG XR PROCEDURES Final Result * Potassium (08/05/2025 11:39 AM EDT) [facility] Potassium 3.6 3.3 - 5.1 mmol/L [facility] Blood Venous blood specimen / Unknown 08/05/2025 11:39 AM EDT 08/05/2025 1:06 PM EDT Spencer Melton MD LAB BLOOD ORDERABLES Final Resul t Performing Organization Address City/[facility] Co de Phone Number [facility] [address] [place] [phone] * PSA, Screen (06/23/2025 10:45 AM EDT) [facility] PSA, Total 0.23 <0.05 - 4.0 ng/mL [facility] Comment:PSA methodology: Abb jojo Haprer i ChemiluminescentMicroparticle Immunoassay (CMIA) Blood Venous blood specimen / Unknown 06/23/2025 10:45 AM EDT 06/23/2025 2:10 PM EDT Tanja Patricia MD LAB BLOOD ORDERABLES Final Re sult Performing Organization Address City/[facility]/ZIP Co de Phone Number [facility] [address] [place] [phone] * Vitamin B12/Folate, Serum Panel (06/23/2025 10:45 AM EDT) [facility] Vitamin B12 484 200 - 900 pg/mL [facility] Comment:NORMAL 200-900 PG/ML INDETERMINATE 160-199 PG/ML DEFICIENT < 160 PG/ML Folate 9.5 > or = 4.0 ng/mL [facility] Comment:Reference Values:> o r = 4.0 ng/mL< 4.0 ng/mL suggests folate deficiency Methotrexate, aminopterin and folinic acid(leucovorin) are chemotherapeutic agents whose molecularstructures are similar to folate; therefore, the Architectfolate assay cannot be used for patients using these drugs. Blood Venous blood specimen / Unknown 06/23/2025 10:45 AM EDT 06/23/2025 2:10 PM EDT Tanja Patricia MD LAB BLOOD ORDERABLES Final Re sult Performing Organization Address City/[facility] Co de Phone Number [facility] [address] [place] [phone] * TSH W/Reflex to FT4 (06/23/2025 10:45 AM EDT) TSH reflex Free T4 0.74 0.32 - 4.0 uIU/mL [facility] Blood Venous blood specimen / Unknown 06/23/2025 10:45 AM EDT 06/23/2025 2:10 PM EDT Tanja Patricia MD LAB BLOOD ORDERABLES Final Re sult Performing Organization Address [facility] Co de Phone Number [facility] [address] [place] [phone] * Hemoglobin A1c (06/23/2025 10:45 AM EDT) Hemoglobin A1c 5.8 <6.0 % [facility] Comment:Hemoglobin A1C Refer ence Range Adults: 4.8 - 6.0 % Non diabetic: < 6.0 % Goal: < 7.0 %Additional Action Suggested: > 8.0 %Note: Hemoglobin A1c results are invalid for patients with abnormal amounts of HbF. Blood transfusions may impact the HbA1c concentration in the patient sample. Estimated Average Glucose 120 mg/dL [facility] Comment:eAG = Estimated ave rage glucose which is %A1C expressed asaverage glucose, using the formula of the C4I-EqcieooBmvwswz Glucose study (ADAG), Diabetes Care, Vol.31,#8,2007 Blood Venous blood specimen / Unknown 06/23/2025 10:45 AM EDT 06/23/2025 2:10 PM EDT Tanja Patricia MD LAB BLOOD ORDERABLES Final Re sult Performing Organization Address [facility] Phone Number [facility] [address] [place] [phone] * Hepatic Function Panel (06/23/2025 10:45 AM EDT) Bilirubin, Total 0.5 0.0 - 1.0 mg/dL [facility] Bilirubin, Direct 0.2 0.0 - 0.5 mg/dL [facility] Aspartate Amino Transferase 30 5 - 37 U/L [facility] Alanine Aminotransferase 22 0 - 40 U/L [facility] Total Protein 7.4 6.5 - 8.0 g/dL [facility] Albumin Level 4.4 3.5 - 5.0 g/dL [facility] Alkaline Phosphatase 84 39 - 117 U/L [facility] Blood Venous blood specimen / Unknown 06/23/2025 10:45 AM EDT 06/23/2025 2:10 PM EDT Tanja Patricia MD LAB BLOOD ORDERABLES Final Re sult Performing Organization Address [facility] Phone Number [facility] [address] [place] [phone] * (ABNORMAL) Basic Metabolic Panel (06/23/2025 10:45 AM EDT) Sodium 139 135 - 145 mmol/L [facility] Potassium 4.2 3.3 - 5.1 mmol/L [facility] Chloride 104 96 - 108 mmol/L [facility] Carbon Dioxide 28 22 - 29 mmol/L [facility] Anion Gap 11(L) 12 - 20 [facility] Urea Nitrogen (BUN) 14 9 - 16 mg/dL [facility] Creatinine, Serum 0.75 0.5 - 1.4 mg/dL [facility] Estimated Glomerular Filt Rate >60 [facility] Comment:Chronic Kidney Disea se: Estimated GFR < 60 mL/min/1.37u3Slymkd Kidney Disease: Estimated GFR < 15 mL/min/1.73m2 Glucose 84 60 - 115 mg/dL [facility] Calcium 9.1 8.4 - 10.2 mg/dL [facility] Blood Venous blood specimen / Unknown 06/23/2025 10:45 AM EDT 06/23/2025 2:10 PM EDT Tanja Patricia MD LAB BLOOD ORDERABLES Final Re sult [facility] [address] [place] [phone] * HIV-1/2 Antigen and Antibodies, Fourth Generation, with Reflexes (06/05/2024 12:00 AM EDT) HIV AB/AG Nonreactive Nonreactive [facility] Comment:HIV-1 p24 Ag and/or HIV-1/HIV-2 Ab not detected.A test result that is nonreactive does not exclude thepossibility of exposure to or infection with HIV-1 and/orHIV-2. Nonreactive results in this assay for individualswith prior exposure to HIV-1 and/or HIV-2 may be due toantigen and antibody levels that are below the limit ofdetection of this assay.The Captual HIV Ag/Ab Combo assay result andsupplemental assay results should be interpreted inconjunction with the patient's clinical presentation,history and other laboratory results. If the results areinconsistent with clinical evidence, additional testing issuggested to confirm the result. Blood Venous blood specimen / Unknown 06/05/2024 06/05/2024 Tanja Patricia MD LAB BLOOD ORDERABLES Final Re sult [facility] [address] [place] [phone] * (ABNORMAL) Lipid Panel, Standard (04/03/2024 10:36 AM EDT) Triglycerides 109 <150 mg/dL [facility] Comment:Desirable Triglyceri de: less than 150 mg/dLBorderline High Triglyceride 150-199 mg/dLHigh Triglyceride: 200-499 mg/dLVery High Triglyceride: greater than or equal to 5OO mg/dL Cholesterol 152 <200 mg/dL [facility] Comment:Desirable Cholestero l: less than 200 mg/dLBorderline High Cholesterol: 200-239 mg/dLHigh Cholesterol: greater than 239 mg/dL LDL Cholesterol Calculated 93 <100 mg/dL [facility] Comment:Desirable LDL: less than 100 mg/dLNear Optimal/Above Optimal LDL: 110- 129 mg/dLBorderline High LDL: 130-159 mg/dLHigh LDL: 160-189 mg/dLVery High LDL: greater than or equal to 190 mg/dL HDL Cholesterol 38(L) >40 mg/dL [facility] Comment:Desirable HDL: great er than 40 mg/dL Note: This HDL assay may give artificially low results in patients with liver disease. Blood Venous blood specimen / Unknown 04/03/2024 10:36 AM EDT 04/03/2024 2:06 PM EDT Tanja Patricia MD LAB BLOOD ORDERABLES Final Re sult Performing Organization Address City/[facility]/ZIP Co de Phone Number [facility] [address] [place] [address] [phone] from Last 3 Months or Most Recently Relevant to Health Maintenance Insurance [facility] C3 Care Teams Conductor Pullman Relationship Specialty Start Date End Date Tanja Patricia MD [address] [place] [address] PCP - General Family Medicine 11/11/18 Barron Jernigan FNP [address] [place] [address] Nurse Practitioner Family Medicine 10/07/23 Jonny Jaime, TAM [address] [place] [address] Registered Nurse Family Medicine 07/27/25 Ernesto Carroll 07/27/25
--- OUTSIDE RECORDS SUMMARY | 2025-08-05 16:15 | XMS_ITS | Encounter Summary ---
Author Organization [employer] Address [address] [facility] 7 [place] [address] Care Team Providers Care Salesperson Florist Supplies Name Role Phone Tanja Patricia MD Primary Care Provider Barron Jernigan Unavailable Unavailable Jonny Jaime RN Unavailable [phone] Ernesto Carroll Unavailable Reason for Referral * Consultation (Routine) - Closed Specialty Diagnoses / Procedures Referred By Contac t Referred To Contact Pharmacy Diagnoses Community acquired pneumonia, unspecified laterality Nathalia Quarles, PharmD [address] [place] [address] Phone: tel: fax: Referral ID Status Reason Start Date Expiration Date V isits Requested Visits Authorized [id number] Closed Continuity of Care 01/21/2024 01/20/2025 1 1 Encounter Details Date Type Department Care Team (Late st Contact Info) Description 01/21/2024 Orders Only [facility] [address] [place] [address] Nathalia Quarles, PharmD [address] [place], [place] [id number] Community acquired pneumonia, unspecified laterality (Primary Dx) Social History Tobacco Use Types Packs/Day Years Used Date Smoking Tobacco: Former Cigarettes Passive Smoke Exposure: Past Smokeless Tobacco: Never Depression Answer Date Recorded Patient Health Questionnaire-9 Score 5 12/05/2023 Patient Health Questionnaire-9 Score 5 12/05/2023 Last PHQ-9: Questionnaire Data Not on file 0 12/05/2023 Housing Stability Answer Date Recorded What is your housing situation today? I have jayna sing 08/26/[address] you li [...] Referral to Pharmacy [facility] Outpatient Referral Routine Community acquired pneumonia, unspecified laterality Ordered: 01/21/2024 documented as of this encounter Visit Diagnoses Diagnosis Community acquired pneumonia, unspecified laterality- Primary documented in this encounter Additional Health Concerns Assessment Noted Time PHQ-9 Depression Total Score: 5 12/05/19 24 10:18 AM EST documented as of this encounter Care Teams Salesperson Florist Supplies Relationship Specialty Start Date End Date Tanja Patricia MD [address] [place] [address] PCP - General Family Medicine 11/11/18 Barron Jernigan FNP [address] [place] [address] Nurse Practitioner Family Medicine 10/07/23 Jonny Jaime, TAM [address] [place] [address] Registered Nurse Family Medicine 07/27/25 Ernesto Carroll 07/27/25 documented as of this encounter
--- OUTSIDE RECORDS SUMMARY | 2025-08-05 16:15 | XMS_ITS | Encounter Summary ---
Author Organization [employer] Address [address] [facility] [address] [place] [address] Care Team Providers Care Brush Cutter Name Role Phone Tanja Patricia MD Primary Care Provider [phone] Barron Jernigan Unavailable Unavailable Jonny Jaime RN Unavailable [phone] Ernesto Carroll Unavailable Reason for Visit * Reason Comments Med Refill Encounter Details Date Type Department Care Team ([facility] st Contact Info) Description 05/11/2025 Refill [facility] [address] [place] [address] Tanja Patricia MD [address] [place] [address] Bipolar affective disorder, remission status unspecified (CMS/HCC) [...] Diagnosis Bipolar affective disorder, remission status unspecified (CMS/[facility]) documented in this encounter Additional Health Concerns Assessment Noted Time PHQ-9 Depression Total Score: 7 05/05/20 24 9:28 AM EDT documented as of this encounter Care Teams Brush Cutter Relationship Specialty Start Date End Date Tanja Patricia MD [address] [place] [address] PCP - General Family Medicine 11/11/18 Barron Jernigan FNP [address] [place] [address] Nurse Practitioner Family Medicine 10/07/23 Jonny Jaime, TAM [address] [place] [address] Registered Nurse Family Medicine 07/27/25 Ernesto Carroll 07/27/25 documented as of this encounter
--- OUTSIDE RECORDS SUMMARY | 2025-08-05 16:15 | XMS_ITS | Encounter Summary ---
Author Organization [employer] Address [address] [facility] [address]t [place] [address] Care Team Providers Care Manpower Development Specialist Name Role Phone Tanja Patricia MD Primary Care Provider [phone] Barron Jernigan Unavailable Unavailable Jonny Jaime RN Unavailable [phone] Ernesto Carroll Unavailable Encounter Details Date Type Department Care Team (Latest Contact Info) Description 08/05/2025 Travel Social History Tobacco Use Types Packs/Day Years [...] documented as of this encounter Care Teams Manpower Development Specialist Relationship Specialty Start Date End Date Tanja Patricia MD [address] [place] [address] PCP - General Family Medicine 11/11/18 Barron Jernigan FNP [address] [place] [address] Nurse Practitioner Family Medicine 10/07/23 Jonny Jaime, TAM [address] [place] [address] Registered Nurse Family Medicine 07/27/25 Ernesto Carroll 07/27/25 documented as of this encounter
--- OUTSIDE RECORDS SUMMARY | 2025-08-05 16:15 | XMS_ITS | Encounter Summary ---
Author Organization [employer] Address [address] [facility] [address] [place] [address] Care Team Providers Care X Ray Equipment Servicer Name Role Phone Tanja Patricia MD Primary Care Provider [phone] Barron Jernigan Unavailable Unavailable Jonny Jaime RN Unavailable [phone] Ernesto Carroll Unavailable Reason for Visit * Reason Comments Med Refill Encounter Details Date Type Department Care Team ([facility] st Contact Info) Description 01/10/2024 Refill [facility] [address] [place], [place] [phone] Tanja Patricia MD [address] [place] [address] Social History Tobacco Use Types Packs/Day Years [...] documented as of this encounter Care Teams X Ray Equipment Servicer Relationship Specialty Start Date End Date Tanja Patricia MD [address] [place] [address] PCP - General Family Medicine 11/11/18 Barron Jernigan FNP [address] [place] [address] Nurse Practitioner Family Medicine 10/07/23 Jonny Jaime, TAM [address] [place] [address] Registered Nurse Family Medicine 07/27/25 Ernesto Carroll 07/27/25 documented as of this encounter
--- OUTSIDE RECORDS SUMMARY | 2025-08-05 16:15 | XMS_ITS | Encounter Summary ---
Author Organization [employer] Address [address] [facility] [address] [place] [address] Care Team Providers Care Hanger Off Name Role Phone Tanja Patricia MD Primary Care Provider [phone] Barron Jernigan Unavailable Unavailable Jonny Jaime RN Unavailable [phone] Ernesto Carroll Unavailable Reason for Visit * Reason Comments Med Refill Encounter Details Date Type Department Care Team ([facility] st Contact Info) Description 06/11/2025 Refill [facility] [address] [place], [place] [phone] Tanja Patricia MD [address] [place] [address] Mixed hyperlipidemia Social History Tobacco Use Types [...] documented as of this encounter Care Teams Hanger Off Relationship Specialty Start Date End Date Tanja Patricia MD [address] [place] [address] PCP - General Family Medicine 11/11/18 Barron Jerniagn FNP [address] [place] [address] Nurse Practitioner Family Medicine 10/07/23 Jonny Jaime, TAM [address] [place] [address] Registered Nurse Family Medicine 07/27/25 Ernesto Carroll 07/27/25 documented as of this encounter
== END 2025-08-05 11:14 | disposition home or self-care (01) ==
LOC: HO.HHCX 11:13
PROVIDERS: PCP Pediatrics; Visit Provider Family Medicine
DX: M79.605 Pain in left leg (principal); E87.6 Hypokalemia
CPT/HCPCS: 36415; 73564; 84132

== ENCOUNTER → 2025-08-05 11:49 | Outpatient (BNV) | payer MEDICAID, SELFPAY | PROVIDERS: PCP Pediatrics; Visit Provider Radiology Diagnostic Radiology | DX: M25.462 Effusion, left knee (principal) | CPT/HCPCS: 73564 ==